=== PATIENT | female | born 1985 | race Caucasian/White ===

== ENCOUNTER 2022-09-20 20:08 | Outpatient (REF) | payer OTHER, SELFPAY ==
[2022-09-26 15:13] LABS: Age Gdln ACOG Testing Note (.); HPV Aptima Negative (Negative); IGP, Aptima HPV, rfx 16/18,45 Note (.)
== END 2022-09-20 20:09 | disposition home or self-care (01) ==
LOC: LAB 20:08
PROVIDERS: Visit Provider Physician Assistant
DX: Z12.4 Encounter for screening for malignant neoplasm of cervix (principal); Z11.51 Encounter for screening for human papillomavirus (HPV)
CPT/HCPCS: 87624; G0145

== ENCOUNTER 2023-06-27 15:28 | Outpatient (OUT) | payer OTHER, SELFPAY ==
--- NOTE | 2023-06-27 15:31 | MM_ITS ---
Patient Name: FREDDY QURESHI MR#: [id number] : 1985 Exam Date: 06/27/2023 Ordering Doctor: JOHN Cabral . RADIOLOGY REPORT PROCEDURE: MM TOMOSYNTHESIS SCREENING BI COMPARISON: None. INDICATIONS: screening Calculator Name NCI Breast Cancer Risk Assessment Tool 5 Year Breast Cancer Risk 0.80% Lifetime Breast Cancer Risk 13.60% Personal Breast Cancer No Personal Ovarian Cancer No Treatments radiation and chemo pill Family Cancers Aunt-maternal with breast cancer at age 62; Grandfather-paternal with colon cancer at age ~74. LOCATION: [facility] BREAST COMPOSITION: There are scattered areas of fibroglandular density. FINDINGS: DIAGNOSTIC CATEGORY 2--BENIGN FINDING. NO CHANGE FROM COMPARISON. Scattered benign-appearing calcifications are present. RIGHT BREAST: No significant suspicious finding. LEFT BREAST: No significant suspicious finding. RECOMMENDATIONS: ROUTINE MAMMOGRAM AND CLINICAL EVALUATION IN 12 MONTHS. PLEASE NOTE: A NORMAL MAMMOGRAM DOES NOT EXCLUDE THE POSSIBILITY OF BREAST CANCER. A CLINICALLY SUSPICIOUS PALPABLE LUMP SHOULD BE BIOPSIED. Dictated by: Jayce Bowling MD on 06/27/2023 at 16:11 Approved by: Jayce Bowling MD on 06/27/2023 at 16:13
== END 2023-06-27 15:29 | disposition home or self-care (01) ==
LOC: MAMMO 15:28
PROVIDERS: Visit Provider Physician Assistant
DX: Z12.31 Encounter for screening mammogram for malignant neoplasm of breast (principal); Z80.3 Family history of malignant neoplasm of breast; Z80.0 Family history of malignant neoplasm of digestive organs
CPT/HCPCS: 77063; 77067

== ENCOUNTER 2023-09-26 19:18 | Outpatient (REF) | payer OTHER, SELFPAY ==
--- OUTSIDE RECORDS SUMMARY | 2023-09-26 19:22 | XMS_ITS | CCD ---
Author Organization [facility] Care Team Providers Care Bow Maker Production Name Role Phone REBEKA, DR GALINA Neil Attending Unavailabl e REQUEST, DR WELLS LISTED Primary Care Unavaila ble REBEKA, DR GALINA Neil Consulting Unavailabl e REBEKA, DR GALINA Neil Admitting Unavailabl e REBEKA, DR GALINA Neil Attending Unavailabl e REQUEST, NONE LISTED Primary Care Unavaila ble GRROSI, DR GALINA Neil Consulting Unavailabl e GRROSI, DR GALINA Neil Admitting Unavailabl e JIM LANG Consulting Unavailable KUCHIPUDIDAMIAN Consulting Unavailable AG, DR PENNY Admitting Unavailable AG, DR PENNY Attending Unavailable REQUEST, NONE LISTED Primary Care Unavaila ble AG, DR PENNY Consulting Unavailable GRILLIS, DR GALINA Neli Attending Unavailabl e REQUEST, DR WELLS LISTED Primary Care Unavaila ble REBEKA, DR GALINA Neil Admitting Unavailabl e Silvina Day Unavailable Maggy Cassie Unavailable [facility] Primary [facility] Provider ANGELO SERNA Attending Unavailable MARVIN CHILDS Referring Unavailable SERNA, ANGELO Primary Care Unavailable FELIPE DRAKE Attending Unavailable FELIPE DRAKE Referring Unavailable SERNA, ANGELO Primary Care Unavailable FELIPE DRAKE Referring Unavailable SERNA, ANGELO Primary Care Unavailable FELIPE DRAKE Attending Unavailable FELIPE DRAKE Referring Unavailable SERNA, ANGELO Primary Care Unavailable FELIPE DRAKE Attending Unavailable MARVIN CHILDS Referring Unavailable SERNA, ANGELO Primary Care Unavailable BRANDY HERRERA Attending Unavailable ELIE JONES Attending Unavailable Medications Current Medications Medication Drug Class(es) Dates Sig (Normalized) Sig (Original) ALPRAZolam 0.25 mg oral tablet (1 source) Benzodiazepine Start: 12-15-2022 take 1 tablet by mouth once daily as needed for anxiety ALPRAZolam (XANAX) 0.25 mg tablet Indications: Anaplastic astrocytoma (CMS-HCC) Take 1 tablet (0.25 mg total) by mouth nightly as needed for anxiety. 20 tablet 0 12/15/2022 Active biotin 10 mg oral tablet (1 source) take 1 tablet by mouth once daily Biotin 10 MG 1 tablet Orally Once a day Active ibuprofen 200 mg oral tablet (1 source) Nonsteroidal Anti-inflammatory Drug ibuprofen (ADVIL,MOTRIN) 200 mg tablet Take 4 tablets (800 mg total) by mouth daily as needed. 2 tablets in the morning and 2 tablets at night 0 Active levETIRAcetam 500 mg oral tablet (3 sources) Start: 12-05-2022 take 1 tablet by mouth twice daily levETIRAcetam (KEPPRA) 500 mg tablet Indications: Brain lesion TAKE 1 TABLET BY MOUTH TWICE A DAY 60 tablet 5 12/05/2022 Active Keppra Active multivitamin capsule (1 source) take 2 capsules by mouth once daily multivitamin capsule Take by mouth daily. 2 gummies daily 0 Active Multivitamin preparation (1 source) take 1 tablet by mouth once daily Multivitamin - 1 tablet Orally Once a day Active nitrofurantoin, macrocrystals 25 mg / nitrofurantoin, monohydrate 75 mg oral capsule (1 source) Nitrofuran Antibacterial Start: 08-11-19 take 1 capsule by mouth every twelve hours Macrobid 100 MG 1 cap(s) Orally bid for 5 day(s) Aug, Active Completed/Discontinued Medications Medication Drug Class(es) Dates Sig (Normalized) Sig (Original) methylPREDNISolone 4 mg oral tablet (2 sources) Corticosteroid Start: 3 methylPREDNISolone 4 MG as directed Orally Once a day for 6 days Mar, Not-Taking mupirocin 0.02 mg/mg topical ointment (1 source) RNA Synthetase Inhibitor Antibacterial Start: 3 Mupirocin 2 % 1 application Externally Three times a day for 7 days May, Not-Taking Triamcinolone (2 sources) Corticosteroid Start: 8 KENALOG - 10 mg Aug, 40 mg Problems Active Problems Problem Classification Problem Date Documented Da te Episodic/Chronic Abdominal hernia (4 sources) Unilateral inguinal hernia, without obstruction or gangrene, not specified as recurrent; Translations: [UNI ING VONNIE NO OBST/GANG NOT RECUR] Onset: 01-19-2022 Episodic 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; 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, unspecified] Onset: 06-11-2020 04-07-2023 Chronic Genitourinary symptoms and ill-defined conditions (1 source) Dysuria Episodic Other nervous system disorders (1 source) Lesion of brain; Translations: [Disorder of brain, unspecified] Onset: 05-28-2020 05-28-2020 Chronic Otitis media and related conditions (1 source) Otitis media, unspecified, right ear Episodic Unclassified (1 source) CONTACT W/AND (SUSP) EXPOS COVID-19; Translations: [CONTACT W/AND (SUSP) EXPOS COVID-19] Onset: 01-18-2022 Past or Other Problems Problem Classification Problem Date Documented Date Episodic/Chronic Immunizations and screening for infectious disease (1 source) Encounter for screening for human papillomavirus (HPV); Translations: [ENC SCREENING HUMAN PAPILLOMAVIRUS] Onset: 08-11-2021 Episodic Mood disorders (1 source) Mood disorders Onset: 06-21-2022 06-21-2022 Other screening for suspected conditions (not mental disorders or infectious disease) (4 sources) Encounter for screening for malignant neoplasm of cervix; Translations: [ENC SCREENING MALIG NEOPLASM CERV] Onset: 08-04-2021 Episodic Results Test Name Value Interpretation Reference Range Facility MR BRAIN W WO CONTon 024 MR BRAIN W WO CONT MR BRAIN W WO CONT MR BRAIN W WO CONT 07/03/2023 12:57 PM INDICATION: Anaplastic astrocytoma (CMS-HCC) COMPARISON: MR brain 03/27/2023, 12/06/2022, 06/13/2022 TECHNIQUE: Multiplanar multisequence MR images of the brain were obtained with and without intravenous contrast. FINDINGS: BRAIN: Redemonstration of left posterior parietal region craniotomy and underlying resection cavity. There is similar appearance of underlying heterogeneous dural enhancement. Focal linear/nodular enhancement along the anterior medial resection cavity is similar similar compared to prior to most recent exam. Increased FLAIR signal about the resection cavity and associated ex vacuo dilatation of the left lateral ventricle is also similar compared to prior to most recent exam. No new nodular enhancement. Mild right peritrigonal and splenial increased FLAIR signal is similar compared to prior. There are areas of susceptibility signal within the resection cavity favored to represent blood products. VENTRICLES: Normal ventricular size. VASCULATURE: Patent major intracranial arterial vasculature. Patent major dural venous sinuses. ORBITS: Unremarkable. PARANASAL SINUSES: Visualized paranasal sinuses are well-aerated. TEMPORAL BONE: Well-aerated middle ears and visualized mastoid air cells. SOFT TISSUES: The visualized head and neck soft tissues are unremarkable. IMPRESSION: Similar left parietal resection cavity with similar degree of surrounding increased FLAIR signal and area of enhancement along the medial anterior margin, favored to represent posttreatment changes, given similarity of to two most recent prior exams. Perfusion imaging on follow-up MRI would be beneficial. Finalized by Jacob Keys DO on 07/03/2023 3:01 PM Normal [facility] MR BRAIN W WO CONTon 024 MR BRAIN W WO CONT MR BRAIN W WO CONT MR BRAIN W WO CONT 03/27/2023 12:37 PM INDICATION: Anaplastic astrocytoma (CMS-HCC); Malignant glioma of cerebrum (CMS-HCC) COMPARISON: MRI brain/, 12/06/2022, 06/13/2022, 01/10/2022 TECHNIQUE: Multiplanar multisequence MR images of the brain were obtained with and without intravenous contrast. FINDINGS: BRAIN: Redemonstration of resection cavity of the left posterior lateral parietal lobe with overlying craniotomy changes. There is persistent linear nodular areas of enhancement along the anterior medial margin, measuring approximately 8 mm, similar to most recent prior, and likely enlarged from more remote prior exams. There is continued surrounding abnormal increased FLAIR signal about the resection cavity, extending across the splenium of the corpus callosum, similar to most recent prior, and worsened for more remote prior exams. Interval resolution of diffusion signal within the region of the enhancement. Susceptibility signal about the resection cavity likely relating to blood products. VENTRICLES: Similar ex vacuo dilatation of the trigone of the left lateral ventricle. VASCULATURE: Patent major intracranial arterial vasculature. Patent major dural venous sinuses. ORBITS: Unremarkable. PARANASAL SINUSES: Visualized paranasal sinuses are well-aerated. TEMPORAL BONE: Well-aerated middle ears and visualized mastoid air cells. SOFT TISSUES: The visualized head and neck soft tissues are unremarkable. OSSEOUS STRUCTURES: Normal bone marrow signal. Visualized upper cervical spine is unremarkable. IMPRESSION: Redemonstration of left parietal resection cavity with continued nodular enhancement similar most recent prior exam, enlarged from remote prior exams, as well as abnormal surrounding FLAIR signal which is also similar to most recent prior exam, and enlarged from more remote prior exams. Progression versus posttreatment changes continue to be considerations. Continued follow-up with perfusion imaging recommended. IJacob DO have personally reviewed the image(s) and agree with and/or edited the report Finalized by Jacob Keys DO on 03/28/2023 10:35 AM Normal [facility] CBC AND AUTO DIFFon 03-27-19 ABSOLUTE BASOPHIL 0.0 X10E9/L Normal 0.0-0.2 [facility] Comment on above: Performed By: #### C BCA #### [facility] ([id number]) [address], [address] [place] [address] ABSOLUTE NEUTROPHIL 6.2 X10E9/L Normal 1.5-6.6 [facility] Comment on above: Performed By: #### C BCA #### [facility] ([id number]) [address], [address] [place] [address] Basophils/100 WBC (Bld) 0.5 % Normal [facility] Comment on above: Performed By: #### C BCA #### [facility] ([id number]) [address] [place] [address] Eosinophils (Bld) [#/Vol] 0.1 10*3/uL Normal 0.0-0.4 [facility] Comment on above: Performed By: #### C BCA #### [facility] ([id number]) [address] [place] [address] Eosinophils/100 WBC (Bld) 0.8 % Normal [facility] Comment on above: Performed By: #### C BCA #### [facility] ([id number]) [address], [address] [place] [address] Erythrocyte distribution width (RBC) [Ratio] 13.1 % Normal 11.5-15.0 [facility] Comment on above: Performed By: #### C BCA #### [facility] ([id number]) [address], [address] [place] [address] Hematocrit (Bld) [Volume fraction] 40.3 % Normal 35-47 [facility] Comment on above: Performed By: #### C BCA #### [facility] ([id number]) [address], [address] [place] [address] Hemoglobin (Bld) [Mass/Vol] 13.9 g/dL Normal 11.7-15.5 [facility] Comment on above: Performed By: #### C BCA #### [facility] ([id number]) [address], [address] [place] [address] Lymphocytes (Bld) [#/Vol] 1.3 10*3/uL Normal 1.0-3.5 [facility] Comment on above: Performed By: #### C BCA #### [facility] ([id number]) [address], [address] [place] [address] Lymphocytes/100 WBC (Bld) 16.7 % Normal [facility] Comment on above: Performed By: #### C BCA #### [facility] ([id number]) [address], [address] [place] [address] MCH (RBC) [Entitic mass] 31.5 pg Normal 27-34 [facility] Comment on above: Performed By: #### C BCA #### [facility] ([id number]) [address], [address] [place] [address] MCHC (RBC) [Mass/Vol] 34.4 g/dL Normal 32-36 [facility] Comment on above: Performed By: #### C BCA #### [facility] ([id number]) [address], [address] [place] [address] MCV (RBC) [Entitic vol] 92 fL Normal 80-100 [facility] Comment on above: Performed By: #### C BCA #### [facility] ([id number]) [address], [address] [place] [address] Monocytes (Bld) [#/Vol] 0.4 10*3/uL Normal 0-0.9 [facility] Comment on above: Performed By: #### C BCA #### [facility] ([id number]) [address], [address] [place] [address] Monocytes/100 WBC (Bld) 4.7 % Normal [facility] Comment on above: Performed By: #### C BCA #### [facility] ([id number]) [address], [address] [place] [address] Neutrophils/100 WBC (Bld) 77.3 % Normal [facility] Comment on above: Performed By: #### C BCA #### [facility] ([id number]) [address], [address] [place] [address] Platelet mean volume (Bld) [Entitic vol] 9.9 fL Normal 7-12 [facility] Comment on above: Performed By: #### C BCA #### [facility] ([id number]) [address], [address] [place] [address] Platelets (Bld) [#/Vol] 257 10*3/uL Normal 150-450 [facility] Comment on above: Performed By: #### C BCA #### [facility] ([id number]) [address], [address] [place] [address] RBC COUNT 4.41 X10E12/L Normal 3.80-5.20 [facility] Comment on above: Performed By: #### C BCA #### [facility] ([id number]) [address], [address] [place] [address] WBC (Bld) [#/Vol] 8.0 10*3/uL Normal 4.0-11.0 [facility] Comment on above: Performed By: #### C BCA #### [facility] ([id number]) [address], [address] [place] [address] Urinalysis - AUTOMATEDon Appearance (U) clear [place] Other Bilirubin Ql (U) Negative [email or web address] Other Color (U) yellow [employer] Other Glucose Ql (U) Negative [place] Other Hemoglobin Ql (U) Negative [employer] Other Ketones Ql (U) Negative [place] Other Leukocyte esterase Test strip Ql (U) Negative [employer] Other Nitrite Ql (U) Negative [employer] Other pH (U) 5.5 [pH] [employer] Other Protein Ql (U) Negative [employer] Other Specific gravity (U) [Rel density] 1.015 [employer] Other Urobilinogen (U) [Mass/Vol] 0.2 mg/dL [employer] Other Urinalysis - AUTOMATED [employer] Other PREG HCG QUALon 01-19-2022 , QUAL Negative Normal NEGATIVE [facility] Comment on above: Performed By: #### P REG #### [facility] [address] [place] [address] Dr. Alex Wang Covid-19 PCR (CVDTB)on 01-04 SARS-CoV-2 (COVID-19) RNA SYLVIE+probe Ql (Unsp spec) Not detected Normal NOT DETECTED [facility] Comment on above: Result Comment: This test is not yet approved or cleared by the [place] FDA. When there are no FDA-approved or cleared tests available, and other criteria are met, FDA can make tests available under an emergency access mechanism called an Emergency Use Authorization (EUA). The EUA for this test is supported by the [place] of Health and Human Service's (HHS's) declaration that circumstances exist to justify the emergency use of in vitro diagnostics for the detection and/or diagnosis of the virus that causes COVID-19. This EUA will remain in effect (meaning this test can be used) for the duration of the COVID-19 declaration justifying emergency of IVDs, unless it is terminated or revoked by FDA (after which the test may no longer be used). When diagnostic testing is negative, the possibility of a false negative should be considered in the context of a patient's recent exposures and the presence of clinical signs and symptoms consistent with SARS-CoV-2. Performed By: #### C VDTB #### [facility] [address] [place] [address] Dr. Alex Wang PAP ACOG PANEL 2: 30 to 65on 08-10-2021 . . Normal [facility] Comment on above: Result Comment: Perf ormed at: WB Performed By: #### [id number] #### [facility] [address] [place] [address] Dr. Alex Wang Age Gdln ACOG Testing - Normal [facility] Comment on above: Performed By: #### [id number] #### [facility] [address] [place] [address] Dr. Alex Wang DIAGNOSIS: Comment Normal [facility] Comment on above: Result Comment: NEGA TIVE FOR INTRAEPITHELIAL LESION OR MALIGNANCY. THIS SPECIMEN WAS RESCREENED PART OF OUR HEAD OF CYTOGENETICS PROGRAM. Performed at: WB Performed By: #### [id number] #### [facility] [address] [place] [address] Dr. Alex Wang HPV Aptima Negative Normal Negative [facility] Comment on above: Result Comment: This nucleic acid amplification test detects fourteen high-risk HPV types (16,18,31,33,35,39,45,51,52,56,58,59,66,68) without differentiation. Performed at: =G Performed By: #### 4 [id number] #### [facility] [address] [address] [address] Alex Wang Methodology: Comment Normal [facility] Comment on above: Result Comment: This liquid based ThinPrep(R) pap test was screened with the use of an image guided system. Performed at: WB Performed By: #### [id number] #### [facility] [address] [place] [address] Dr. Alex Wang Note: Comment Normal [facility] Comment on above: Result Comment: The Pap smear is a screening test designed to aid in the detection of premalignant and malignant conditions of the uterine cervix. It is not a diagnostic procedure and should not be used as the sole means of detecting cervical cancer. Both false-positive and false-negative reports do occur. . Performed at: WB Performed By: #### [id number] #### [facility] [address] [place] [address] Dr. Alex Wang Performed by: Comment Normal [facility] Comment on above: Result Comment: Tonja De Leon, Management Instructor (ASCP) Performed at: WB Performed By: #### [id number] #### [facility] [address] [place] [address] Dr. Alex Wang QC reviewed by: Comment Normal [facility] Comment on above: Result Comment: Loc Middleton, Management Instructor Performed at: WB Performed By: #### [id number] #### [facility] [address] [place] [address] Dr. Alex Wang Specimen adequacy: Comment Normal [facility] Comment on above: Result Comment: Sati sfactory for evaluation. Endocervical and/or squamous metaplastic cells (endocervical component) are present. Performed at: WB Performed By: #### 4 [id number] #### [facility] [address] [address] [address] Alex Wang PROGRESSon 05-25-2019 PROGRESS HNO ID: [id number] Author: Lucita Maldonado Service: ? Author Type: Nurse Practitioner Type: Progress Notes Filed: 05/25/2019 9:16 AM Note Text: Telemedicine Visit - Distance Health Virtual Visit Note Patient seen on [employer] [facility] platform. 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 No past medical history on file. No past surgical history on file. No family history on file. Social History Tobacco Use - Smoking status: Not on file Substance Use Topics - Alcohol use: Not on file - Drug use: Not on file No current outpatient medications on file. No current facility-administered medications for this visit. ALLERGIES Allergies not on file Video Exam (Examination performed via Video enabled technology) -video issues, visit completed via phone General appearance: Alert, oriented, pleasant, in NAD : Ill appearing : Lethargic appearing : Eyes: Sclera clear : Conjunctiva without erythema : Ears: Tragus / outer ear tenderness by self palpation :full Oropharynx: normal, no erythema and not examined Frontal sinus tenderness by self palpation;Yes Maxillary sinus tenderness by self palpation :Yes Tender cervical adenopathy by self palpation :Yes Respiratory distress :No Coughing noted :No Audible wheezing noted :No [facility] Criteria - Age (2-14=+1, 15-44=0, >=45 -1): 0 - Tonsillar exudates: 0 - Tender anterior cervical adenopathy: +1 - Fever by history (>38 or 100.4): 0 - Absence of cough: 0 0 points- probability of strep is 1-2.5% 1 point- probability of strep is 5-10% 2 points- probability of strep is 11-17% 3 points- probability of strep is 28-35% 4 points- probability of strep is 51-53% ASSESSMENT/PLAN: 1. Acute maxillary sinusitis, recurrence not specified - ICD9: 461.0, ICD10: J01.00 - Will begin treatment with as per antibiotic as written, see orders - The patient should also be given OTC cough and cold meds as needed and nasal saline gtts and suction prn for the first 5-7 days of treatment. - AMOXICILLIN 875 MG-POTASSIUM CLAVULANATE 125 MG TABLET - FLONASE SENSIMIST 27.5 MCG/ACTUATION NASAL SPRAY,SUSPENSION - SALINE MIST 0.65 % NASAL SPRAY AEROSOL -Tylenol (generic acetaminophen) 500 mg-2 tabs every 8 hrs. as needed for fever and aches -Sudafed (generic is fine), behind the counter, 2x30 mg tabs twice daily as needed for congestion -Mucinex (generic is fine) 1200 mg twice daily to help with cough and to thin out mucus -http://www.[email or web address] isely.org/patient-res ources/antibiotics/. This link shares information about when antibiotics may help and when they may not. - Red flags discussed for need for in person care - All questions answered Lucita Maldonado CNP If you let us know who your primary care provider is, we will send them a notification of today?s visit through our electronic medical records system. Since not all providers have access to our notifications, we strongly encourage you to share the following record of today?s visit with your primary care provider at your next visit. This will help in providing you the best care. Normal [facility] PROGRESS HNO ID: [id number] Author: Chela German) Marlys Service: ? Author Type: Nurse Practitioner Type: Progress Notes Filed: 05/25/2019 8:13 AM Note Text: Unable to connect. Pt.canceled visit. Chela Frankel APRN.IDANA [facility] PROGRESS HNO ID: [id number] Author: Nolvia Gifford) Gus Service: ? Author Type: Physician Work And Family Life Consultant Type: Progress Notes Filed: 05/25/2019 8:06 AM Note Text: Appointment cancelled, no connection. No phone number to contact pt. Nolvia Weber PA-C Normal [facility] Vital Signs Date Time Vital Sign Value Performing Clinician Facility 08-10-2022 16:50-0400 Body height 162.56 cm Cassie Winter Other [facility] Other 08-10-2022 16:50-0400 Body mass index (BMI) [Ratio] 26.6 kg/m2 Cassie Winter Other [facility] Other 08-10-2022 16:50-0400 Body temperature 97.7 [degF] Cassie Winter Other [facility] Other 08-10-2022 16:50-0400 Body weight 70.31 kg Cassie Winter Other [facility] Other 08-10-2022 16:50-0400 Respiratory rate 18 /min Cassie Winter Other [facility] Other 08-10-2022 16:50-0400 SaO2% (BldA) [Mass fraction] 99 % Cassie Winter Other [facility] Other 04-03-2022 15:20-0500 Body height 162.56 cm Silvina Shay Other [facility] Other 04-03-2022 15:20-0500 Body mass index (BMI) [Ratio] 27.46 kg/m2 Silvina Day Other [facility] Other 04-03-2022 15:20-0500 Body temperature 98 [degF] Silvina Day Other [facility] Other 04-03-2022 15:20-0500 Body weight 72.58 kg Silvina Day Other [facility] Other 04-03-2022 15:20-0500 Respiratory rate 18 /min Silvina Day Other [facility] Other 04-03-2022 15:20-0500 SaO2% (BldA) [Mass fraction] 97 % Silvina Day Other [facility] Other Encounters Encounter Date Encounter Type Care Provider Facility Start: 09-05-2023 End: 09-05-2023 ambulatory ELIE Alfredo ROBERT Not Available Start: 07-03-2023 End: 07-04-2023 ambulatory [facility] [place] Start: 06-22-2023 End: 06-22-2023 ambulatory [facility] Start: 04-25-2023 End: 04-25-2023 ambulatory BRANDY HERRERA Not Available Start: 04-07-2023 End: 04-07-2023 Orders Only Brooke guadarrama [place] [facility] Comment on above: Anaplastic astrocyto ma ([facility]-HCC) (Primary Dx) Start: 03-27-2023 End: 03-28-2023 ambulatory [facility] [place] [facility] Start: 08-10-2022 End: 08-10-2022 ambulatory Cassie Winter Other [facility] Other Start: 08-10-2022 Office outpatient vi sit 15 minutes Cassie Winter [facility] Start: 04-03-2022 End: 04-03-2022 ambulatory Silvina Shay Other [facility] Other Start: 04-03-2022 Office outpatient vi sit 15 minutes Silvina Day [facility] Start: 01-19-2022 End: 01-19-[address] GALINA STALEY Facility:[facility] Start: 01-18-2022 Encounter for preprocedural laboratory examination DR GALINA STALEY [facility] Start: 01-15-2022 End: 01-16-[address] GALINA STALEY Facility:[facility] Start: 01-15-2022 End: 01-16-2022 Encounter for preprocedural laboratory examination DR GALINA STALEY Facility:[facility] Start: 01-13-2022 Encounter for other preprocedural examination DR GALINA STALEY [facility] Start: 01-07-2022 End: 01-08-[address] GALINA STALEY Facility:[facility] Start: 01-07-2022 End: 01-08-2022 Encounter for other preprocedural examination DR GALINA STALEY Facility:[facility] Start: 08-04-2021 End: 08-04-[address] ZOHAIB LUONG Facility:[facility] Procedures Date Procedure Procedure Detail Performing Clinician Start: 04-07-2023 Follow-up visit Follow-up FELIPE DRAKE Start: 10-14-2022 Microscopic observat ion [Identifier] in Cervix by Cyto stain Brooke Duron RN Start: 06-21-2022 Adult depression scr eening assessment Brooke Duron RN Plan of Treatment Date Care Activity Detail Author Start: 10-14-2025 Screening for malignant neoplasm of cervix Pap Smear [facility] Start: 04-07-2024 Adult BMI Screening Adult BMI Screen ing [facility] Start: 11-03-2023 End: 11-03-2023 Patient encounter procedure 11/03/2023 3:30 PM EDT Office Visit [facility] - [facility] Oncology [address] [place] [id number] Felipe Drake MD [address] [facility] [facility] [address] [place], [place] [id number] [facility] - [facility] Start: 07-06-2023 End: 04-07-2024 MR Brain WO and W contrast IV MR brain with and without contrast Imaging Routine Anaplastic astrocytoma (CMS-HCC) Expected: 07/06/2023 (Approximate), Expires: 04/07/2024 [facility] Work Phone: Comment on above: Expected: 07/06/2023 (Approximate), Expires: 04/07/2024 Start: 06-22-2023 End: 06-22-2023 Patient encounter procedure 06/22/2023 3:15 PM EDT Office Visit [facility] [address] [place] [address] Angelo Seran, [employer] [address] [place], [place] [address] [facility] Start: 06-22-2023 Depression Screening Depression Scre [facility] Start: 06-22-2023 Tobacco Screening Tobacco Screening [facility] Start: 11-04-2022 COVID-19 Vaccine ( season) COVID-19 Vaccine ( season) [facility] Start: 06-22-2002 DTaP,Tdap and Td Vaccines (1 - Tdap) DTaP,Tdap and Td Vaccines (1 - Tdap) [facility] Immunizations Immunization Date Immunization Notes Care Provider Fa cility 11-24-2021 influenza, injectabl e, quadrivalent, preservative free Brooke Duron RN [facility] Work Phone: 11-25-2020 influenza, injectabl e, quadrivalent, preservative free Brooke Duron RN [facility] 11-27-2019 influenza, injectabl e, quadrivalent, preservative free Brooke Duron RN [facility] 11-28-2018 influenza, injectabl e, quadrivalent, preservative free Brooke Duron RN [facility] 11-29-2017 influenza, injectabl e, quadrivalent, preservative free Brooke Duron RN [facility] 11-30-2016 influenza, injectabl e, quadrivalent, preservative free Brooke Duron RN [facility] Payers Date Payer Category Payer Unknown [facility] [id number] 2020-Present [phone] [address] [address] [place] [address] [id number] 1985 Unknown [id number] 1985 Unknown [id number] 1983 Unknown [id number] [id number] 1983 Unknown [id number] [id number] 1983 Unknown [id number] [id number] 1983 Unknown [id number] [id number] 1983 Unknown [id number] [id number] 1983 Unknown [id number] [id number] 1983 Unknown [id number] [id number] 1983 Unknown [id number] [id number] 1983 Unknown [id number] 1959 Unknown [id number] Social History Date Type Detail Facility Unknown if ever smoked [facility] Other Start: 06-12-2021 End: 06-21-2022 [facility] Start: 12-27-2021 Tobacco smoking status CAIS Never smoked tobacco [facility] Start: 12-27-2021 Tobacco use and exposure Smokeless tobacco non-user [facility] Start: 06-21-2022 Alcohol intake Current drinker of alcohol (finding) [facility] Start: 06-12-2021 End: 06-21-2022 History of Social function [facility] Do you belong to any clubs or organizations such as alevism groups, unions, fraternal or athletic groups, or school groups? Yes [facility] Are you now , , , , never or living with a partner? [facility] How often to you hav e a drink containing alcohol? Monthly or less [facility] How many standard dr inks containing alcohol do you have on a typical day? 1 or 2 [facility] How often do you hav e 6 or more drinks on 1 occasion? Never [facility] How hard is it for y ou to pay for the very basics like food, housing, medical care, and heating Not hard at all [facility] Do you feel stress - tense, restless, nervous, or anxious, or unable to sleep at night because your mind is troubled all the time - these days [OSQ] Only a little [facility] Start: 07-12-2020 Education 18 [facility] Start: 03-14-2022 Alcohol Comment rarely [facility] Start: 1985 Sex Assigned At Not on file [facility]kt[facility] Medical Equipment Procedure Code Equipment Code Equipment Origin al Text Equipment Identifier Dates Gft Sft Tis Dram trx+ 2x2 [place] Rpl [id number] + [id number] - [id number] - [id number] Start: 06-01-2020 Cvr Lw Prof [place] 10mm - [id number] Start: 06-01-2020 Plt Lw Pf Extra Rig 2-Hl 12mm - [id number] Start: 06-01-2020 Scr Cmf Slfdrl C ross Pin 1.5x4 - [id number] Start: 06-01-2020 Goals Date Patient Goal Desired Activity /State Personal health goal Comment on above: Formatting of this n ote might be different from the original. Evaluation of progress towards goal: home/self care History of Present illness Narrative 04-07-2023 Brooke Duron RN - 04/07/2023 3:55 PM EST Note Date & Type Note Facility 04-07-2023 History of Presen t illness Narrative Patient is here for follow up with Dr. Drake. Orders received for Brain MRI in 3 months, no visit. Dr. Drake will review her imaging in tumor board. F/u in late 10/2023 again, likely need another imaging. Patient given calendar, verbalized understanding of future appointments. documented in this encounter [facility] Evaluation note 08-10-2022 Note Date & Type Note Facility 08-10-2022 Evaluation note Encounter Date Diagnosis Assessment Notes Aug, Dysuria (ICD-10 - R30.0) Dysuria: adult home care material was printed Drink plenty fluids, get plenty of rest. Take the Macrobid as prescribed until gone. Follow-up with your family physician if no improvement in 2 to 3 days. Take Tylenol or Motrin as needed for aches pains or fevers. The urine dip was negative however the patient will be treated for UTI due to her symptoms. Patient is in stable marital relationship with no concerns for STDs. Patient denies any perineal lesions or burning on urination [facility] Other Evaluation note 04-03-2022 Note Date & Type Note Facility 04-03-2022 Evaluation note Encounter Date Diagnosis Assessment Notes Mar, Right acute otitis media (ICD-10 - H66.91) take medication as directed. Middle ear fluid can be caused from allergies, traveling or viral infections. It may linger. Follow up with PCP if symptoms persist [facility] Other History general Narrative - Reported 01-04-2022 Note Date & Type Note Facility 01-04-2022 History general N arrative - Reported Type Medical History Brain tumor Surgical History C section Surgical History tonsillectomy Surgical History hernia repair 01/2022 Surgical History Brain tumor removal 01/2021 [facility] Other History general Narrative - Reported 01-04-2022 Note Date & Type Note Facility 01-04-2022 History general N arrative - Reported Type Medical History Brain tumor Medical History Seasonal allergic rhinitis Surgical History C section Surgical History tonsillectomy Surgical History hernia repair 01/2022 Surgical History Brain tumor removal 01/2021 Surgical History PE tubes [facility] Other Evaluation note Note Date & Type Note Facility Evaluation note Diagnosis Anaplastic astrocytoma ([facility]-H[facility])- Primary Malignant neoplasm of brain, unspecified site documented in this encounter [facility] Instructions Note Date & Type Note Facility Instructions Not on filedocumented in this en counter [facility] Summary Purpose Family History No Family History Records FoundNo Family History Records FoundNo Family History Records FoundNo Family History Records FoundNo Family History Records Found Advance Directives No Advanced Directives Records FoundLatest Code Status on File Code Status Date Activated Date Inactivated Comments Full Code 05/28/2020 10:51 PM 06/03/2020 4:31 PM Reason for Referral Specialty Diagnoses / Procedures Referred By Geoffrey ugarte Referred To Contact Radiology Diagnoses Anaplastic astrocytoma (CMS-HCC) Procedures MR brain with and without contrast Felipe Drake MD [address] [place], [place] [id number] Referral ID Status Reason Start Date Expiration Date V isits Requested Visits Authorized [id number] Pending Review 04/07/2023 04/06/2024 1 1 Additional Source Comments INFORMATION SOURCE (unrecogn ized section and content) DATE CREATED AUTHOR 05/25/2019 [facility] DATE CREATED AUTHOR AUTHOR'S ORGANIZ ATION 01/27/2022 [facility] DATE CREATED AUTHOR AUTHOR'S ORGANIZ ATION 06/24/2023 [facility] DATE CREATED AUTHOR AUTHOR'S ORGANIZ ATION 07/04/2023 [facility] DATE CREATED AUTHOR AUTHOR'S ORGANIZ ATION 09/06/2023 [facility] d[facility] Specialists EPIC REASON FOR VISIT (unrecogniz ed section and content) VERTIGO EAR BOTHERING HERPOS IBLE UTI Care Teams (unrecognized sec tion and content) [employer] Production Relationship Specialty Start Date End Date Angelo Serna APRN-[facility]: [phone] PCP - General Nurse Practitioner 09/03/22 FOR RECORDS PERTAINING TO PATIENTS WHO ARE OR HAVE BEEN ENROLLED IN A CHEMICAL DEPENDENCY/SUBSTANCEABUSE PROGRAM, SOME INFORMATION MAY BE OMITTED. This clinical summary was aggregated from multiple sources. Caution should be exercised in using it in the provision of clinical care. This summary normalizes information from multiple sources, and as a consequence, information in this document may materially change the coding, format and clinical context of patient data. In addition, data may be omitted in some cases. CLINICAL DECISIONS SHOULD BE BASED ON THE PRIMARY CLINICAL RECORDS. [facility] [employer] [facility]. provides no warranty or guarantee of the accuracy or completeness of information in this document.
[2023-10-02 12:09] LABS: Age Gdln ACOG Testing Note (.); HPV Aptima Negative (Negative); IGP, Aptima HPV, rfx 16/18,45 Note (.)
== END 2023-09-26 19:19 | disposition home or self-care (01) ==
LOC: LAB 19:18
PROVIDERS: Visit Provider Physician Assistant
DX: Z01.419 Encounter for gynecological examination (general) (routine) without abnormal findings (principal)
CPT/HCPCS: 87624; 88175

== ENCOUNTER 2024-06-27 15:08 | Outpatient (OUT) | payer OTHER, SELFPAY ==
--- NOTE | 2024-06-27 15:15 | MM_ITS ---
Patient Name: FREDDY QURESHI MR#: [id number] : 1985 Exam Date: 06/27/2024 Ordering Doctor: JOHN Cabral . RADIOLOGY REPORT PROCEDURE: MM TOMOSYNTHESIS SCREENING BI COMPARISON: MM TOMOSYNTHESIS SCREENING BI, 06/27/2023. INDICATIONS: Screening Calculator Name NCI Breast Cancer Risk Assessment Tool 5 Year Breast Cancer Risk 0.80% Lifetime Breast Cancer Risk 13.50% Personal Breast Cancer No Personal Ovarian Cancer No Treatments radiation and chemo pill Family Cancers Aunt-maternal with breast cancer at age 62; Grandfather-paternal with colon cancer at age ~74. LOCATION: [facility] BREAST COMPOSITION: There are scattered areas of fibroglandular density. FINDINGS: DIAGNOSTIC CATEGORY 1--NEGATIVE. RIGHT BREAST: No significant suspicious finding. LEFT BREAST: No significant suspicious finding. RECOMMENDATIONS: ROUTINE MAMMOGRAM AND CLINICAL EVALUATION IN 12 MONTHS. PLEASE NOTE: A NORMAL MAMMOGRAM DOES NOT EXCLUDE THE POSSIBILITY OF BREAST CANCER. A CLINICALLY SUSPICIOUS PALPABLE LUMP SHOULD BE BIOPSIED. Dictated by: Julio Cleveland DO on 06/27/2024 at 16:37 Approved by: Julio Cleveland DO on 06/27/2024 at 16:41
== END 2024-06-27 15:09 | disposition home or self-care (01) ==
LOC: MAMMO 15:10
PROVIDERS: PCP Nurse Practitioner Family; Visit Provider Physician Assistant
DX: Z12.31 Encounter for screening mammogram for malignant neoplasm of breast (principal); Z80.3 Family history of malignant neoplasm of breast; Z80.0 Family history of malignant neoplasm of digestive organs
CPT/HCPCS: 77063; 77067

== ENCOUNTER 2024-09-30 20:14 | Outpatient (REF) | payer OTHER, SELFPAY ==
--- OUTSIDE RECORDS SUMMARY | 2024-09-30 20:20 | XMS_ITS | CCD ---
Author Organization [facility] Care Team Providers Care [facility] Representatives Name Role Phone REBKEA, DR GALINA Neil Attending Unavailabl e REQUEST, DR WELLS LISTED Primary Care Unavaila ble REBEKA, DR GALINA Neil Consulting Unavailabl e REBEKA, DR GALINA Neil Admitting Unavailabl e REBEKA, DR GALINA Neil Attending Unavailabl e REQUEST, NONE LISTED Primary Care Unavaila ble GRROSI, DR GALINA Neil Consulting Unavailabl e GRROSI, DR GALINA Neil Admitting Unavailabl e JIM LANG Consulting Unavailable KUCHIPUDI, DAMIAN Consulting Unavailable AG, DR PENNY Admitting Unavailable AG, DR PENNY Attending Unavailable REQUEST, NONE LISTED Primary Care Unavaila ble AG, DR PENNY Consulting Unavailable GRILLIS, DR GALINA Neil Attending Unavailabl e REQUEST, NONE LISTED Primary Care Unavaila ble REBEKA, DR GALINA Neil Admitting Unavailabl e Silvina Day Unavailable Maggy Cassie [facility]available [facility] FELIPE DRAKE Attending Unavailable NOELLE, FELIPE N Referring Unavailable SERNA, ANGELO Primary Care Unavailable NOELLEFELIPE N Attending Unavailable NOELLE, WANG N Referring Unavailable SERNA, ANGELO Primary Care Unavailable NOELLE, FELIPE N Referring Unavailable SERNA, ANGELO Primary Care Unavailable FELIPE DRAKE N Attending Unavailable NOELLE, WANG N Referring Unavailable SERNA, ANGELO Primary Care Unavailable NOELLE, FELIPE N Attending Unavailable MARVIN CHILDS Referring Unavailable SERNA, ANGELO Primary Care Unavailable NOELLE, FELIPE N Attending Unavailable NOELLE, WANG N Referring Unavailable SERNA, ANGELO Primary Care Unavailable FELIPE DRAKE N Attending Unavailable MARVIN CHILDS Referring Unavailable SERNA, ANGELO Primary Care Unavailable Martina Montes Unavailable Clarence ENGLAND Angelo Primary Care Provider Angelo Beltran Primary Care Provider ANGELO SERNA Attending Unavailable SERNA, ANGELO Referring Unavailable SERNAANGELO Primary Care Unavailable ANGELO SERNA Attending Unavailable ANGELO SERNA Referring Unavailable SERNA ANGELO Primary Care Unavailable ANGELO SERNA Attending Unavailable SERNA, ANGELO Referring Unavailable SERNA, ANGELO Primary Care Unavailable TONJA ARMENDARIZ Attending Unavailable MARTINA HERRERA Attending Unavailable Medications Current Medications Medication Drug Class(es) Dates Sig (Normalized) Sig (Original) Albuterol Sulfate 90 mcg/actuation HFA aerosol inhaler (1 source) Start: 04-29-2024 Albuterol Sulfate 90 mcg/actuation HFA aerosol inhaler Active 2 INH INHALATION EVERY 4-6 HOURS as needed for shortness of breath or wheezing 6.7 April 29, 2024 12:00am biotin 10 mg oral tablet (1 source) take 1 tablet by mouth once daily Biotin 10 MG 1 tablet Orally Once a day Active doxycycline hyclate 100 mg oral tablet (1 source) Tetracycline-class Drug Start: 02-07-2024 End: 02-17-2024 take 1 tablet by mouth in the morning, then take 1 tablet by mouth at bedtime doxycycline (VIBRA-TABS) 100 mg tablet Take 1 tablet (100 mg total) by mouth in the morning and 1 tablet (100 mg total) before bedtime. Do all this for 10 days. 20 tablet 02/07/2024 02/17/2024 Active ibuprofen 200 mg oral tablet (11 sources) Nonsteroidal Anti-inflammatory Drug ibuprofen (ADVIL,MOTRIN) 200 mg tablet Take 4 tablets (800 mg total) by mouth daily as needed. 2 tablets in the morning and 2 tablets at night Active levETIRAcetam 500 mg oral tablet (20 sources) Start: 10-14-2022 End: 02-02-2024 take 1 tablet by mouth in the morning levETIRAcetam (Keppra) 500 MG tablet Take 1 tablet by mouth in the morning and 1 tablet before bedtime. 10/14/2022 Active Keppra Active levonorgestrel 0.171343 mg/hr intrauterine system (8 sources) Progestin, Progestin-containing Intrauterine Device Start: 10-05-2022 Levonorgestrel intrauterine device 52 mg Levonorgestrel ( KYLEENA IU) by Intrauterine route. Active Multiple Vitamins-Minerals (MULTIVITAMIN ADULT, MINERALS, PO) (4 sources) Multiple Vitamin s-Minerals (MULTIVITAMIN ADULT, MINERALS, PO) Take by mouth Daily. Active multivitamin capsule (11 sources) take 2 capsules by mouth once daily in the morning multivitamin capsule Take by mouth in the morning. 2 gummies daily . Active take 2 capsules by mouth once da adina multivitamin capsule Take by mouth daily. 2 gummies daily Active take 2 capsules by mouth once da adina multivitamin capsule Take by mouth daily. 2 gummies daily 0 Active Multivitamin preparation (1 source) take 1 tablet by mouth once daily Multivitamin - 1 tablet Orally Once a day Active Multivitamin tablet (1 source) Start: 04-29-19 25 take 1 tablet by mouth once daily Multivitamin tablet Active 1 TAB PO Daily April 29, 2024 12:00am nitrofurantoin, macrocrystals 25 mg / nitrofurantoin, monohydrate 75 mg oral capsule (1 source) Nitrofuran Antibacterial Start: 08-11-19 23 take 1 capsule by mouth every twelve hours Macrobid 100 MG 1 cap(s) Orally bid for 5 day(s) Aug, Active Completed/Discontinued Medications Medication Drug Class(es) Dates Sig (Normalized) Sig (Original) ALPRAZolam 0.25 mg oral tablet (3 sources) Benzodiazepine Start: 3 End: 4 take 1 tablet by mouth once daily as needed for anxiety ALPRAZolam (XANAX) 0.25 mg tablet Indications: Anaplastic astrocytoma (CMS-HCC) Take 1 tablet (0.25 mg total) by mouth nightly as needed for anxiety. 20 tablet 12/15/2022 06/22/2023 Discontinued (Therapy completed) methylPREDNISolone 4 mg oral tablet (2 sources) [...] NO OBST/GANG NOT RECUR] Onset: 01-19-2022 Episodic Anxiety disorders (2 sources) Generalized anxiety disorder; Translations: [Anxiety disorder due to a general medical condition] Onset: 03-25-2024 11-03-2023 Chronic Cancer of brain and nervous system (20 sources) Malignant glioma of cerebrum; Translations: [Malignant neoplasm of cerebrum, except lobes and ventricles] Onset: 06-11-2020 06-11-2020 Chronic Genitourinary symptoms and ill-defined conditions (1 source) Dysuria Episodic Malignant neoplasm without specification of site (1 source) Malignant (primary) neoplasm, unspecified; Translations: [Malignant (primary) neoplasm, unspecified] Onset: 03-25-2024 Chronic Other acquired deformities (4 sources) Contracture of joint of left ankle; Translations: [Contracture, left ankle] Onset: 09-16-2022 09-16-2022 Chronic Other nervous system disorders (13 sources) Lesion of brain; Translations: [Disorder of brain, unspecified] Onset: 05-28-2020 05-28-2020 Chronic Other nutritional; endocrine; and metabolic disorders (1 source) Body mass index 25-29 - overweight; Translations: [Overweight] 06-27-2024 Episodic Other screening for suspected conditions (not mental disorders or infectious disease) (6 sources) Encounter for screening for malignant neoplasm of cervix; Translations: [Patient encounter status] Onset: 08-04-2021 Episodic Other skin disorders (1 source) Folliculitis; Translations: [Follicular disorder, unspecified] 02-11-2024 Episodic Otitis media and related conditions (1 source) Otitis media, unspecified, right ear Episodic Unclassified (1 source) CONTACT W/AND (SUSP) EXPOS COVID-19; Translations: [CONTACT W/AND (SUSP) EXPOS COVID-19] Onset: 01-18-2022 Unclassified (1 source) Annual Exam Onset: 06-27-2024 Unclassified (1 source) Follow - Up Abscess Onset: 03-04-2024 Unclassified (1 source) Bump in Armpit Onset: 02-07-2024 Past or Other Problems Problem Classification Problem Date Documented Date Episodic/Chronic Immunizations and screening for infectious disease (1 source) Encounter for screening for human papillomavirus (HPV); Translations: [ENC SCREENING HUMAN PAPILLOMAVIRUS] Onset: 08-11-2021 Episodic Mood disorders (11 sources) Mood disorders Onset: 06-22-2023 Resolved: 06-27-2024 06-22-2023 Other non-epithelial cancer of skin (4 sources) History of malignant neoplasm of skin; Translations: [Personal history of other malignant neoplasm of skin] Onset: 09-16-2022 09-16-2022 Episodic Other skin disorders (2 sources) Localized swelling, mass and lump, left upper limb; Translations: [Localized superficial swelling, mass, or lump] Onset: 03-04-2024 03-04-2024 Episodic Results Test Name Value Interpretation Reference Range Facility MM TOMOSYNTHESIS SCREENING B Ion 06-27-2024 [place] [address] Mammography Report Signed Patient: FREDDY PEOPLES MR#: [id number] : 1985 Acct:[id number] Age/Sex: 39 / F ADM Date: 06/27/24 Loc: MAMMO Attending Dr: Tonja Armendariz Ordering Physician: Tonja Armendariz Results: Date of Service: 06/27/24 Follow Up: Procedure(s): MM tomosynthesis screening BI Accession Number(s): [id number] cc: Tonja Armendariz; Angelo Serna NP Patient Name: FREDDY PEOPLES MR#: [id number] : 1985 Exam Date: 06/27/2024 Ordering Doctor: JOHN Armendariz . RADIOLOGY REPORT PROCEDURE: MM TOMOSYNTHESIS SCREENING BI COMPARISON: MM TOMOSYNTHESIS SCREENING BI, 06/27/2023. INDICATIONS: Screening Calculator Name NCI Breast Cancer Risk Assessment Tool 5 Year Breast Cancer Risk 0.80% Lifetime Breast Cancer Risk 13.50% Personal Breast Cancer No Personal Ovarian Cancer No Treatments radiation and chemo pill Family Cancers Aunt-maternal with breast cancer at age 62; Grandfather-paternal with colon cancer at age 74. LOCATION: [facility] BREAST COMPOSITION: There are scattered areas of fibroglandular density. FINDINGS: DIAGNOSTIC CATEGORY 1--NEGATIVE. RIGHT BREAST: No significant suspicious finding. LEFT BREAST: No significant suspicious finding. RECOMMENDATIONS: ROUTINE MAMMOGRAM AND CLINICAL EVALUATION IN 12 MONTHS. PLEASE NOTE: A NORMAL MAMMOGRAM DOES NOT EXCLUDE THE POSSIBILITY OF BREAST CANCER. A CLINICALLY SUSPICIOUS PALPABLE LUMP SHOULD BE BIOPSIED. Dictated by: Julio Cleveland DO on 06/27/2024 at 16:37 Approved by: Julio Cleveland DO on 06/27/2024 at 16:41 Dictated By: Julio Cleveland M.D. Signed By: 06/27/241642 DD/ 41 TD/TT: Ed Educational Aide: [facility] Radiology, Radiologist, MD - 06/27/2024 [place] [address] Mammography Report Signed Patient: FREDDY PEOPLES MR#: [id number] : 1985 Acct:[id number] Age/Sex: 39 / F ADM Date: 06/27/24 Loc: MAMMO Attending Dr: Tnoja Armendariz Ordering Physician: Tonja Armendariz Results: Date of Service: 06/27/24 Follow Up: Procedure(s): MM tomosynthesis screening BI Accession Number(s): [id number] cc: Tonja Armendariz; Angelo Serna NP Patient Name: FREDDY PEOPLES MR#: [id number] : 1985 Exam Date: 06/27/2024 Ordering Doctor: JOHN Armendariz . RADIOLOGY REPORT PROCEDURE: MM TOMOSYNTHESIS SCREENING BI COMPARISON: MM TOMOSYNTHESIS SCREENING BI, 06/27/2023. INDICATIONS: Screening Calculator Name NCI Breast Cancer Risk Assessment Tool 5 Year Breast Cancer Risk 0.80% Lifetime Breast Cancer Risk 13.50% Personal Breast Cancer No Personal Ovarian Cancer No Treatments radiation and chemo pill Family Cancers Aunt-maternal with breast cancer at age 62; Grandfather-paternal with colon cancer at age 74. LOCATION: [facility] BREAST COMPOSITION: There are scattered areas of fibroglandular density. FINDINGS: DIAGNOSTIC CATEGORY 1--NEGATIVE. RIGHT BREAST: No significant suspicious finding. LEFT BREAST: No significant suspicious finding. RECOMMENDATIONS: ROUTINE MAMMOGRAM AND CLINICAL EVALUATION IN 12 MONTHS. PLEASE NOTE: A NORMAL MAMMOGRAM DOES NOT EXCLUDE THE POSSIBILITY OF BREAST CANCER. A CLINICALLY SUSPICIOUS PALPABLE LUMP SHOULD BE BIOPSIED. Dictated by: Julio Cleveland DO on 06/27/2024 at 16:37 Approved by: Julio Cleveland DO on 06/27/2024 at 16:41 Dictated By: Julio Cleveland M.D. Signed By: 06/27/241642 DD/ 41 TD/TT: Ed Educational Aide: [facility] [employer] Radiology Study observation (narrative) [facility] [employer] MM TOMOSYNTHESIS SCREENING B IOrdered By: Radiologist Radiology on 06-27-2024 [facility] Work Phone: MR BRAIN W WO CONTon 025 MR BRAIN W WO CONT MR BRAIN W WO CONT EXAM: MR BRAIN W WO CONT TECHNIQUE: Routine multiplanar multisequence MR imaging of the brain was performed prior to and following the uneventful administration of intravenous contrast. CLINICAL HISTORY: Metastatic disease evaluation. History of anaplastic astrocytoma. COMPARISON: 10/23/2023, 07/03/2023, and earlier FINDINGS: Stable postsurgical changes status post left parietal craniotomy with an underlying focal surgical resection cavity. The overall degree of postsurgical distortion is without significant interval change. Stable appearance of chronic linear enhancement within the surgical resection site, suspected postsurgical in etiology. No new or progressive foci of pathologic enhancement are identified within the surgical resection cavity or elsewhere throughout the brain. Chronic FLAIR and T2 hyperintensity surrounding the surgical resection cavity is stable, and most compatible with chronic postoperative gliosis and possibly a post therapeutic etiology. Chronic fluid within the surgical resection cavity is stable. There is no intracranial mass effect. There is no shift of the midline structures and the basal cisterns are widely patent. There is no evidence for ventricular outflow obstruction. There is no restricted diffusion. The midline structures and craniocervical junction are within normal limits. There is no restricted diffusion. The paranasal sinuses are well aerated. The mastoids are clear. IMPRESSION: 1. Stable postsurgical changes status post left parietal craniotomy with underlying surgical resection cavity, as detailed above. There is no convincing evidence for disease progression. Finalized by Mark Thomas MD on 03/25/2024 3:15 PM Normal [facility] MR BRAIN W WO CONTon 024 MR BRAIN W WO CONT MR BRAIN W WO CONT MR BRAIN W WO CONT 10/23/2023 12:41 PM INDICATION: Anaplastic astrocytoma (CMS-HCC). Staging/restaging. Assess treatment response. COMPARISON: MR brain 07/03/2023, MR brain 03/27/2023 TECHNIQUE: Multiplanar multisequence MR images of the brain were obtained with and without intravenous contrast. FINDINGS: Redemonstrated left parietal craniotomy with underlying resection cavity. Similar appearance of the surgical bed with small foci of susceptibility compatible with hemosiderin deposition and surrounding T2/FLAIR hyperintense signal. No new or enlarging enhancing nodularity. Ill-defined enhancement along the deep margins of the resection cavity adjacent to the lateral ventricle have decreased in conspicuity compared to prior examination and measures approximately 5 mm in diameter (series 17 image 116). Dural thickening/enhancemen t along the craniotomy site is similar to prior examination. No new intracranial enhancing lesions. No acute intracranial ischemia, new mass effect, shift of midline structures, or new extra-axial fluid collection. Similar signal changes of the corpus callosum splenium. Ventricular system size and morphology are unchanged with ex vacuo dilatation of the left lateral ventricle trigone. Basal cisterns are patent. Orbits are symmetric. Paranasal sinuses are well-aerated. Mastoid air cells are clear. IMPRESSION: Stable appearance of the left parietal resection cavity with no evidence to suggest residual or recurrent disease. Decreased conspicuity of the nodular enhancement along the deep resection margin, likely posttreatment changes. IHeriberto MD have personally reviewed the image(s) and agree with and/or edited the report Finalized by Heriberto Nesbitt MD on 10/25/2023 10:19 AM Normal [facility] MR BRAIN W WO CONTon 024 MR [...] Jacob Keys DO on 07/03/2023 3:01 PM [facility] MR BRAIN W WO CONTon 024 [...] Keys DO on 03/28/2023 10:35 AM Normal [facility] CBC AND AUTO DIFFon 03-27-19 ABSOLUTE BASOPHIL 0.0 X10E9/L Normal 0.0-0.2 [facility] Comment on above: Performed By: #### C BCA #### [facility] ([id number]) [address], [address] [place] [address] ABSOLUTE NEUTROPHIL 6.2 X10E9/L Normal 1.5-6.6 [facility] Comment on above: Performed By: #### C BCA #### [facility] ([id number]) [address], [address] [place] [address] Basophils/100 WBC (Bld) 0.5 % Normal [facility] Comment on above: Performed By: #### C BCA #### [facility] ([id number]) [address], [address] [place] [address] Eosinophils (Bld) [#/Vol] 0.1 10*3/uL Normal 0.0-0.4 [facility] Comment on above: Performed By: #### C BCA #### [facility] ([id number]) [address], [address] [place] [address] Eosinophils/100 WBC (Bld) 0.8 % Normal [facility] Comment on above: Performed By: #### C BCA #### [facility] ([id number]) [address], [address] [place] [address] Erythrocyte distribution width (RBC) [Ratio] 13.1 % Normal 11.5-15.0 [facility] Comment on above: Performed By: #### C BCA #### [facility] ([id number]) [address], [address] [place] [address] Hematocrit (Bld) [Volume fraction] 40.3 % Normal 35-47 [facility] Comment on above: Performed By: #### C BCA #### [facility] ([id number]) [address], [address] [place] [address] Hemoglobin (Bld) [Mass/Vol] 13.9 g/dL Normal 11.7-15.5 [facility] Comment on above: Performed By: #### C BCA #### [facility] ([id number]) [address], [address] [place] [address] Lymphocytes (Bld) [#/Vol] 1.3 10*3/uL Normal 1.0-3.5 [facility] Comment on above: Performed By: #### C BCA #### [facility] ([id number]) [address], [address] [place] [address] Lymphocytes/100 WBC (Bld) 16.7 % Normal [facility] Comment on above: Performed By: #### C BCA #### [facility] ([id number]) [address], [address] [place] [address] MCH (RBC) [Entitic mass] 31.5 pg Normal 27-34 [facility] Comment on above: Performed By: #### C BCA #### [facility] ([id number]) [address], [address] [place] [address] MCHC (RBC) [Mass/Vol] 34.4 g/dL Normal 32-36 [facility] Comment on above: Performed By: #### C BCA #### [facility] ([id number]) [address], [address] [place] [address] MCV (RBC) [Entitic vol] 92 fL Normal 80-100 [facility] Comment on above: Performed By: #### C BCA #### [facility] ([id number]) [address] [place] [address] Monocytes (Bld) [#/Vol] 0.4 10*3/uL Normal 0-0.9 [facility] Comment on above: Performed By: #### C BCA #### [facility] ([id number]) [address], [address] [place] [address] Monocytes/100 WBC (Bld) 4.7 % Normal [facility] Comment on above: Performed By: #### C BCA #### [facility] ([id number]) [address], [address] [place] [address] Neutrophils/100 WBC (Bld) 77.3 % Normal [facility] Comment on above: Performed By: #### C BCA #### [facility] ([id number]) [address], [address] [place] [address] Platelet mean volume (Bld) [Entitic vol] 9.9 fL Normal 7-12 [facility] Comment on above: Performed By: #### C BCA #### [facility] ([id number]) [address], [address] [place] [address] Platelets (Bld) [#/Vol] 257 10*3/uL Normal 150-450 [facility] Comment on above: Performed By: #### C BCA #### [facility] ([id number]) [address] [place] [address] RBC COUNT 4.41 X10E12/L Normal 3.80-5.20 [facility] Comment on above: Performed By: #### C BCA #### [facility] ([id number]) [address], [address] [place] [address] WBC (Bld) [#/Vol] 8.0 10*3/uL Normal 4.0-11.0 [facility] Comment on above: Performed By: #### C BCA #### [facility] ([id number]) [address], [address] [place] [address] Urinalysis - AUTOMATEDon Appearance (U) clear [employer] Other Bilirubin Ql (U) Negative [employer] Other Color (U) yellow [employer] Other Glucose Ql (U) Negative [employer] Other Hemoglobin Ql (U) Negative [employer] Other Ketones Ql (U) Negative [employer] Other Leukocyte esterase Test strip Ql (U) Negative [employer] Other Nitrite Ql (U) Negative [employer] Other pH (U) 5.5 [pH] [employer] Other Protein Ql (U) Negative [employer] Other Specific gravity (U) [Rel density] 1.015 [employer] Other Urobilinogen (U) [Mass/Vol] 0.2 mg/dL [employer] Other Urinalysis - AUTOMATED [employer] Other PREG HCG QUALon 01-19-2022 , QUAL Negative Normal NEGATIVE [facility] Comment on above: Performed By: #### P REG #### [facility] [address], [place] [address] Dr. Alex Wang Covid-19 PCR ([facility])on 01-04 SARS-CoV-2 (COVID-19) RNA SYLVIE+probe Ql (Unsp spec) Not detected Normal NOT DETECTED [facility] Comment on above: Result Comment: This test is not yet approved or cleared by the [place] FDA. When there are no FDA-approved or cleared tests available, and other criteria are met, FDA can make tests available under an emergency access mechanism called an Emergency Use Authorization (EUA). The EUA for this test is supported by the Title Agent of Health and Human Service's (HHS's) declaration [...] consistent with SARS-CoV-2. Performed By: #### C VDTBH #### [facility] [address], [place] [address] Dr. Alex Wang PAP ACOG PANEL 2: 30 to 65on 08-10-2021 . . Normal [facility] [place] Comment on above: Result Comment: Perf ormed at: WB Performed By: #### [id number] #### [facility] [address], [place] [address] Dr. Alex Wang Age Gdln ACOG Testing 30-65 Normal [facility] [place] Comment on above: Performed By: #### [id number] #### [facility] [address] [place] [address] [address] Alex Wang DIAGNOSIS: Comment Normal [facility] [place] Comment on above: Result Comment: NEGA TIVE FOR INTRAEPITHELIAL LESION OR MALIGNANCY. THIS SPECIMEN WAS RESCREENED PART OF OUR AURICULAR ACUPUNCTURIST PROGRAM. Performed at: WB Performed By: #### [id number] #### [facility] [address] [place] [address] [address] Alex Wang HPV Aptima Negative Normal Negative [facility] [place] Comment on above: Result Comment: This nucleic acid amplification test detects fourteen high-risk HPV types (16,18,31,33,35,39,45,51,52,56,58,59,66,68) without differentiation. Performed at: =G Performed By: #### [id number] #### [facility] [address] [place] [address] Dr. Alex Wang Methodology: Comment Normal [facility] Comment on above: Result Comment: This liquid based ThinPrep(R) pap test was screened with the use of an image guided system. Performed at: WB Performed By: #### [id number] #### [facility] [address] [place] [address] Dr. Alex Wang Note: Comment Normal [facility] Comment on above: Result Comment: The Pap smear is a screening test designed to aid in the detection of premalignant and malignant conditions of the uterine cervix. It is not a diagnostic procedure and should not be used as the sole means of detecting cervical cancer. Both false-positive and false-negative reports do occur. . Performed at: WB Performed By: #### [id number] #### [facility] [address] [address] [address] Alex Wang Performed by: Comment Normal [facility] Comment on above: Result Comment: Tonja De Leon, Risk Management Manager (ASCP) Performed at: WB Performed By: #### [id number] #### [facility] [address] [place] [address] Dr. Alex Wang QC reviewed by: Comment Normal [facility] Comment on above: Result Comment: Loc Middleton, Risk Management Manager Performed at: WB Performed By: [id number] #### [facility] [address], [place] [address] Dr. Alex Wang Specimen adequacy: Comment Normal [facility] Comment on above: Result Comment: Sati sfactory for evaluation. Endocervical and/or squamous metaplastic cells (endocervical component) are present. Performed at: WB Performed By: #### [id number] #### [facility] [address], [place] [address] Dr. Alex Wang PROGRESSon 05-25-2019 PROGRESS HNO ID: [id number] Author: Lucita Maldonado Service: ? Author Type: Nurse Practitioner Type: Progress Notes Filed: 05/25/2019 9:16 AM Note Text: Telemedicine Visit - Distance Health Virtual Visit Note Patient seen on [employer] platform. Location of patient: [place] History of Present Illness Freddy Peoples is [...] in providing you the best care. Normal [facility] PROGRESS HNO ID: [id number] Author: Chela German) Marlys Service: ? Author Type: Nurse Practitioner Type: Progress Notes Filed: 05/25/2019 8:13 AM Note Text: Unable to connect. Pt.canceled visit. Chela Frankel APRN.CNP [facility] PROGRESS HNO ID: [id number] Author: Nolvia Gifford) Gus Service: ? Author Type: Physician [place] Actor Type: Progress Notes Filed: 05/25/2019 8:06 AM Note Text: Appointment cancelled, no connection. No phone number to contact pt. Nolvia Weber PA-C [facility] Vital Signs Date Time Vital Sign Value Performing Clinician Facility 09-30-2024 10:10-0400 Body mass index (BMI) [Ratio] 26.26 kg/m2 Tonja LOPEZ Work Phone: [facility] 09-30-2024 10:10-0400 Body weight 69.4 kg Tonja LOPEZ Work Phone: [facility] 09-30-2024 10:10-0400 Diastolic blood pressure 76 mm[Hg] Tonja LOPEZ Work Phone: [facility] 09-30-2024 10:10-0400 Systolic blood pressure 114 mm[Hg] Tonja LOPEZ Work Phone: [facility] 06-27-2024 13:14-0400 Body height 162.6 cm Angelo Serna APRN-MESH CUTTER Work Phone: [facility] 06-27-2024 13:14-0400 Body mass index (BMI) [Ratio] 26.67 kg/m2 Angelo Serna ASSISTANT PARALEGAL-MESH CUTTER Work Phone: [facility] 06-27-2024 13:14-0400 Body temperature 97.9 [degF] Angelo Serna APRN-MESH CUTTER Work Phone: [facility] 06-27-2024 13:14-0400 Body weight 70.49 kg Angelo Serna ASSISTANT PARALEGAL-MESH CUTTER Work Phone: [facility] 06-27-2024 13:14-0400 Diastolic blood pressure 62 mm[Hg] Angelo Serna ASSISTANT PARALEGAL-MESH CUTTER Work Phone: [facility] 06-27-2024 13:14-0400 Heart rate 75 /min Angelo Serna ASSISTANT PARALEGAL-MESH CUTTER Work Phone: [facility] 06-27-2024 13:14-0400 SaO2% (BldA) [Mass fraction] 97 % Angelo Serna ASSISTANT PARALEGAL-MESH CUTTER Work Phone: [facility] 06-27-2024 13:14-0400 Systolic blood pressure 118 mm[Hg] Angelo Seran ASSISTANT PARALEGAL-MESH CUTTER Work Phone: [facility] 04-29-2024 13:17-0500 Body height 162.56 cm [facility] 04-29-2024 13:17-0500 Body mass index (BMI) [Ratio] 25.5 kg/m2 [facility] 04-29-2024 13:17-0500 Body temperature 98.1 [degF] [facility] 04-29-2024 13:17-0500 Body weight 67.58 kg [facility] 04-29-2024 13:17-0500 Diastolic blood pressure 67 mm[Hg] [facility] 04-29-2024 13:17-0500 Heart rate 93 /min [facility] 04-29-2024 13:17-0500 SaO2% (BldA) [Mass fraction] 97 % [facility] 04-29-2024 13:17-0500 Systolic blood pressure 103 mm[Hg] [facility] 03-04-2024 07:44-0500 Body height 162.6 cm Angelo Serna ASSISTANT PARALEGAL-MESH CUTTER Work Phone: [facility] 03-04-2024 07:44-0500 Body mass index (BMI) [Ratio] 25.82 kg/m2 Angelo Serna ASSISTANT PARALEGAL-MESH CUTTER Work Phone: [facility] 03-04-2024 07:44-0500 Body temperature 98.2 [degF] Angelo Serna ASSISTANT PARALEGAL-MESH CUTTER Work Phone: [facility] 03-04-2024 07:44-0500 Body weight 68.22 kg Angelo Serna ASSISTANT PARALEGAL-MESH CUTTER Work Phone: [facility] 03-04-2024 07:44-0500 Diastolic blood pressure 68 mm[Hg] Angelo Serna ASSISTANT PARALEGAL-MESH CUTTER Work Phone: [facility] 03-04-2024 07:44-0500 Heart rate 76 /min Angelo Serna ASSISTANT PARALEGAL-MESH CUTTER Work Phone: [facility] 03-04-2024 07:44-0500 SaO2% (BldA) [Mass fraction] 96 % Angelo Serna ASSISTANT PARALEGAL-MESH CUTTER Work Phone: [facility] 03-04-2024 07:44-0500 Systolic blood pressure 120 mm[Hg] Angelo Serna ASSISTANT PARALEGAL-MESH CUTTER Work Phone: [facility] 02-07-2024 11:39-0500 Body mass index (BMI) [Ratio] 25.31 kg/m2 Angelo Serna ASSISTANT PARALEGAL-MESH CUTTER Work Phone: [facility] 02-07-2024 11:39-0500 Body temperature 97.81 [degF] Angelo Serna ASSISTANT PARALEGAL-MESH CUTTER Work Phone: [facility] 02-07-2024 11:39-0500 Body weight 68.49 kg Angelo Serna ASSISTANT PARALEGAL-MESH CUTTER Work Phone: [facility] 02-07-2024 11:39-0500 Diastolic blood pressure 64 mm[Hg] Angelo Serna ASSISTANT PARALEGAL-MESH CUTTER Work Phone: [facility] 02-07-2024 11:39-0500 Heart rate 76 /min Angelo Serna ASSISTANT PARALEGAL-MESH CUTTER Work Phone: [facility] [employer] [facility] 02-07-2024 11:39-0500 SaO2% (BldA) [Mass fraction] 98 % Angelo Serna ASSISTANT PARALEGAL-MESH CUTTER Work Phone: [facility] [employer] [facility] 02-07-2024 11:39-0500 Systolic blood pressure 110 mm[Hg] Angelo Serna ASSISTANT PARALEGAL-MESH CUTTER Work Phone: [facility] [employer] [facility] 11-03-2023 15:14-0400 Body height 164.5 cm Felipe Drake MD Work Phone: [facility] [employer] [facility] 11-03-2023 15:14-0400 Body mass index (BMI) [Ratio] 25.21 kg/m2 Felipe Drake MD Work Phone: [facility] [employer] [facility] 11-03-2023 15:14-0400 Body weight 68.22 kg Felipe Drake MD Work Phone: [facility] [employer] [facility] 11-03-2023 15:14-0400 Diastolic blood pressure 61 mm[Hg] Felipe Drake MD Work Phone: [facility] [employer] [facility] 11-03-2023 15:14-0400 Heart rate 72 /min Felipe Drake MD Work Phone: [facility] [employer] [facility] 11-03-2023 15:14-0400 Respiratory rate 18 /min Felipe Drake MD Work Phone: [facility] [employer] [facility] 11-03-2023 15:14-0400 SaO2% (BldA) [Mass fraction] 99 % Felipe Drake MD Work Phone: [facility] [employer] [facility] 11-03-2023 15:14-0400 Systolic blood pressure 128 mm[Hg] Feliep Drake MD Work Phone: [facility] [employer] [facility] 06-22-2023 15:15-0400 Body mass index (BMI) [Ratio] 24.54 kg/m2 Angelo Serna ASSISTANT PARALEGAL-MESH CUTTER Work Phone: [facility] [employer] [facility] 06-22-2023 15:15-0400 Body temperature 97.81 [degF] Angelo Serna ASSISTANT PARALEGAL-MESH CUTTER Work Phone: [facility] [employer] [facility] 06-22-2023 15:15-0400 Body weight 66.41 kg Angelo Serna ASSISTANT PARALEGAL-MESH CUTTER Work Phone: [facility] [employer] [facility] 06-22-2023 15:15-0400 Diastolic blood pressure 60 mm[Hg] Angelo Serna ASSISTANT PARALEGAL-MESH CUTTER Work Phone: [facility] [employer] [facility] 06-22-2023 15:15-0400 Heart rate 77 /min Angelo Serna ASSISTANT PARALEGAL-MESH CUTTER Work Phone: [facility] [employer] [facility] 06-22-2023 15:15-0400 SaO2% (BldA) [Mass fraction] 98 % Angelo Serna ASSISTANT PARALEGAL-MESH CUTTER Work Phone: [facility] [employer] [facility] 06-22-2023 15:15-0400 Systolic blood pressure 144 mm[Hg] Angelo Serna ASSISTANT PARALEGAL-MESH CUTTER Work Phone: [facility] [employer] [facility] 04-07-2023 15:04-0500 Body height 164.5 cm Felipe Drake MD Work Phone: [facility] [employer] [facility] 04-07-2023 15:04-0500 Body mass index (BMI) [Ratio] 24.98 kg/m2 Felipe Drake MD Work Phone: [facility] [employer] [facility] 04-07-2023 15:04-0500 Body temperature 99 [degF] Felipe Drake MD Work Phone: [facility] [employer] [facility] 04-07-2023 15:04-0500 Body weight 67.59 kg Felipe Drake MD Work Phone: [facility] [employer] [facility] 04-07-2023 15:04-0500 Diastolic blood pressure 61 mm[Hg] Felipe Drake MD Work Phone: [facility] [employer] [facility] 04-07-2023 15:04-0500 Heart rate 77 /min Felipe Drake MD Work Phone: [facility] 04-07-2023 15:04-0500 Respiratory rate 18 /min Felipe Drake MD Work Phone: [facility] 04-07-2023 15:04-0500 SaO2% (BldA) [Mass fraction] 100 % Felipe Drake MD Work Phone: [facility] 04-07-2023 15:04-0500 Systolic blood pressure 124 mm[Hg] Felipe Drake MD Work Phone: [facility] 08-10-2022 16:50-0400 Body height 162.56 cm Cassie Arayamond Other [employer] Other 08-10-2022 16:50-0400 Body mass index (BMI) [Ratio] 26.6 kg/m2 Cassie Maggy Other [employer] Other 08-10-2022 16:50-0400 Body temperature 97.7 [degF] Cassie Maggy Other [employer] Other 08-10-2022 16:50-0400 Body weight 70.31 kg Cassie Maggy Other [employer] Other 08-10-2022 16:50-0400 Respiratory rate 18 /min Cassie Maggy Other [employer] Other 08-10-2022 16:50-0400 SaO2% (BldA) [Mass fraction] 99 % Cassie Maggy Other [employer] Other 04-03-2022 15:20-0500 Body height 162.56 cm Sivlina Day Other [employer] Other 04-03-2022 15:20-0500 Body mass index (BMI) [Ratio] 27.46 kg/m2 Silvina Day Other [employer] Other 04-03-2022 15:20-0500 Body temperature 98 [degF] Silvina Day Other [employer] Other 04-03-2022 15:20-0500 Body weight 72.58 kg Silvina Day Other [employer] Other 04-03-2022 15:20-0500 Respiratory rate 18 /min Silvina Day Other [employer] Other 04-03-2022 15:20-0500 SaO2% (BldA) [Mass fraction] 97 % Silvina Day Other [employer] Other Encounters Encounter Date Encounter Type Care Provider Facility Start: 09-30-2024 End: 09-30-2024 Bamboo flowsheet Tonja LOPEZ Work Phone: [facility] Start: 09-30-2024 End: 09-30-2024 Bamboo flowsheet Tonja LOPEZ Work Phone: [facility] Start: 09-30-2024 End: 09-30-2024 Patient encounter procedure Tonja LOPEZ Work Phone: [facility] Work Phone: Start: 09-30-2024 End: 09-30-2024 Periodic preventive med est patient 40-64yrs Tonja LOPEZ Work Phone: [facility] Comment on above: Well woman exam with routine gynecological exam; Breast cancer screening by mammogram Start: 09-30-2024 End: 09-30-2024 ambulatory TONJA ARMENDARIZ Not Available Start: 06-27-2024 End: 06-27-2024 Clinisync Result Encounter Tonja LOPEZ Work Phone: [facility] Unsolicited Start: 06-27-2024 End: 06-27-2024 Clinisync Result Encounter Tonja LOPEZ Work Phone: [facility] Unsolicited Start: 06-27-2024 End: 06-27-2024 Patient encounter status Angelo Serna ASSISTANT PARALEGAL-MESH CUTTER Work Phone: [facility] Start: 06-27-2024 End: 06-27-2024 Periodic preventive med est patient 40-64yrs Angelo Serna ASSISTANT PARALEGAL-MESH CUTTER [facility] Comment on above: Wellness examination (Primary Dx); Overweight (BMI 25.0-29.9) Start: 06-27-2024 End: 06-27-[address] [facility] Start: 04-29-2024 End: 04-29-2024 ambulatory [facility] Work Phone: Start: 04-29-2024 End: 04-29-2024 Patient encounter procedure [facility] Work Phone: Start: 03-25-2024 End: 03-25-2024 ambulatory [facility] Start: 03-04-2024 End: 03-04-2024 Office outpatient visit 10 minutes Angelo Serna ASSISTANT PARALEGAL-MESH CUTTER Work Phone: [facility] Comment on above: Lump in armpit, left (Primary Dx) Start: 03-04-2024 End: 03-04-[address] [facility] Start: 02-07-2024 End: 02-07-2024 Office outpatient visit 15 minutes Angelo Rojas ASSISTANT PARALEGAL-MESH CUTTER Work Phone: [facility] Comment on above: Folliculitis (Primar y Dx) Start: 02-07-2024 End: 02-07-[address] [facility] Start: 02-02-2024 End: 02-02-2024 Refill Colin Tejeda MD Work Phone: [facility] Comment on above: Brain lesion Start: 11-03-2023 End: 11-03-2023 Office outpatient visit 15 minutes Felipe Drake MD Work Phone: [facility] Comment on above: Anaplastic astrocyto ma (CMS-HCC) (Primary Dx); Malignant glioma of cerebrum (CMS-HCC) Start: 11-03-2023 End: 11-03-2023 ambulatory [facility] Comment on above: Anaplastic astrocyto ma (CMS-HCC) (Primary Dx); Malignant glioma of cerebrum (CMS-HCC); Anxiety associated with cancer diagnosis ([facility]-HCC) Start: 10-23-2023 End: 10-23-2023 ambulatory [facility] Start: 10-10-2023 End: 10-10-2023 ambulatory MARTINA HERRERA Not Available Start: 07-07-2023 End: 07-11-2023 Refill Colin Tejeda MD Work Phone: [facility] Comment on above: Brain lesion Start: 07-04-2023 End: 07-04-2023 Orders Only Brooke [facility] Comment on above: Anaplastic astrocyto ma ([facility]-HCC) (Primary Dx) Start: 07-03-2023 End: 07-03-2023 ambulatory [facility] Start: 06-22-2023 End: 06-22-2023 Patient encounter status Angelo Clarence ASSISTANT PARALEGAL-MESH CUTTER Work Phone: [facility] [employer] Work Phone: Start: 06-22-2023 End: 06-22-2023 Periodic preventive med est patient 40-64yrs Angelo Serna ASSISTANT PARALEGAL-MESH CUTTER Work Phone: [facility] Comment on above: Wellness examination (Primary Dx); Anaplastic astrocytoma (CMS-HCC) Start: 04-07-2023 End: 04-07-2023 Office outpatient visit 25 minutes Felipe Drake MD Work Phone: [facility] Comment on above: Anaplastic astrocyto ma (CMS-HCC) (Primary Dx); Malignant glioma of cerebrum (CMS-HCC) Start: 04-07-2023 End: 04-07-2023 ambulatory FELIPE DRAKE [facility] Comment on above: Anaplastic astrocyto ma (CMS-HCC) (Primary Dx) Start: 03-27-2023 End: 03-27-2023 ambulatory FELIPE DRAKE [facility] Start: 08-10-2022 End: 08-10-2022 ambulatory Cassie Winter Other [employer] Other Start: 08-10-2022 Office outpatient vi sit 15 minutes Cassie Maggy [facility] Start: 04-03-2022 End: 04-03-2022 ambulatory Silvina Day Other [employer] Other Start: 04-03-2022 Office outpatient vi sit 15 minutes Silvina Day [facility] Start: 01-19-2022 End: 01-19-[address] GALINA STALEY Facility:[facility] Start: 01-18-2022 Encounter for preprocedural laboratory examination DR GALINA STALEY [facility] Start: 01-15-2022 End: 01-16-[address] GALINA STALEY Facility:[facility] Start: 01-15-2022 End: 01-16-2022 Encounter for preprocedural laboratory examination DR GALINA STALEY Facility:[facility] Start: 01-13-2022 Encounter for other preprocedural examination DR GALINA STALEY [facility] Start: 01-07-2022 End: 01-08-[address] GALINA STALEY Facility:[facility] Start: 01-07-2022 End: 01-08-2022 Encounter for other preprocedural examination DR GALINA STALEY Facility:[facility] Start: 08-04-2021 End: 08-04-[address] ZOHAIB MUSE Facility:[facility] Procedures Date Procedure Procedure Detail Performing Clinician Start: 06-27-2024 MM TOMOSYNTHESIS SCR EENING BI Tonja LOPEZ Work Phone: Start: 06-27-2024 Adult depression scr eening assessment Angelo Serna ASSISTANT PARALEGAL-MESH CUTTER Work Phone: Start: 06-27-2024 Mammography Tonja LOPEZ Work Phone: Start: 11-03-2023 Follow-up visit Follow-up FELIPE DRAKE Start: 09-26-2023 Microscopic observat ion [Identifier] in Cervix by Cyto stain Rebeka Carrera RN Start: 06-22-2023 Adult depression scr eening assessment Angelo Serna ASSISTANT PARALEGAL-MESH CUTTER Work Phone: Start: 10-14-2022 Microscopic observat ion [Identifier] in Cervix by Cyto stain Brooke Duron RN Start: 06-21-2022 Adult depression scr eening assessment Brooke Duron RN Plan of Treatment Date Care Activity Detail Author Start: 09-25-2028 Screening for malign ant neoplasm of cervix [facility] Start: 09-25-2026 Screening for malign ant neoplasm of cervix Pap Smear [facility] Start: 10-14-2025 Screening for malign ant neoplasm of cervix Pap Smear [facility] Start: 10-01-2025 End: 10-01-2025 Patient encounter procedure 10/01/2025 9:00 AM EDT Procedure Visit [facility] [address] [place] [address] Tonja Amrendariz PA [address] [place] [address] [facility] Start: 06-30-2025 End: 06-30-2025 Patient encounter procedure 06/30/2025 4:00 PM EDT Office Visit [facility] [address] [place] [phone] Angelo Serna APRN-CNP [address] [place] [address] [place] [address] [facility] Start: 06-27-2025 Adult BMI Screening Adult BMI Screen ing [facility] Start: 06-27-2025 Depression Screening Depression Scre ening [facility] Start: 06-27-2025 Screening for malign ant neoplasm of breast Mammogram [facility] Start: 06-27-2025 Tobacco Screening Tobacco Screening [facility] Start: 02-10-2025 Tobacco Screening Tobacco Screening [facility] Start: 02-06-2025 Adult BMI Screening Adult BMI Screen ing [facility] Start: 02-06-2025 Tobacco Screening Tobacco Screening [facility] Start: 11-04-2024 Influenza vaccination N [facility] Start: 11-02-2024 Adult BMI Screening Adult BMI Screen ing [facility] Start: 11-01-2024 End: 11-01-2024 Patient encounter procedure 11/01/2024 3:30 PM EDT Office Visit [facility] [place] [address] Felipe Drake MD [address] [facility] [address] [place] [address] [facility] Start: 10-15-2024 End: 10-15-2024 Patient encounter procedure 10/15/2024 9:10 AM EDT Office Visit [facility] [address] [place] [phone] Martina Herrera PA [address] [place] [address] [facility] Start: 10-14-2024 End: 10-14-2024 Patient encounter procedure 10/14/2024 9:00 AM EDT Office Visit [facility] [address] [place] [address] Martina Herrera PA [address] [place] [address] [facility] Start: 09-30-2024 End: 12-01-2025 MG Breast - bilateral Screening Bilateral screening mammogram Imaging Routine Breast cancer screening by mammogram Expected: 09/30/2024 (Approximate), Expires: 12/01/2025 [facility] Work Phone: Comment on above: Expected: 09/30/2024 (Approximate), Expires: 12/01/2025 Start: 09-30-2024 End: 09-30-2024 Patient encounter procedure [facility] Comment on above: Arrived Start: 06-30-2024 Tobacco Screening Tobacco Screening [facility] Start: 06-29-2024 Adult BMI Screening Adult BMI Screen ing [facility] Start: 06-27-2024 End: 06-27-2024 Patient encounter procedure 06/27/2024 3:00 PM EDT Office Visit [facility] [address] [place] [phone] Angelo Serna, ASSISTANT PARALEGAL-MESH CUTTER [address] [place] [phone] [facility] Start: 06-26-2024 Screening for malign ant neoplasm of breast Mammogram [facility] Start: 06-21-2024 Depression Screening Depression Scre ening [facility] Start: 06-21-2024 Tobacco Screening Tobacco Screening [facility] Start: 04-07-2024 Adult BMI Screening Adult BMI Screen ing [facility] Start: 03-25-2024 End: 03-25-2024 Patient encounter procedure 03/25/2024 9:15 AM EST Appointment [facility] - [facility] Imaging [address] [place] [address] Felipe Drake MD [address] [place] [address] [address] [place] [address] [facility] Start: 02-12-2024 End: 11-02-2024 MR Brain WO and W contrast IV MR brain with and without contrast Imaging Routine Anaplastic astrocytoma (CMS-HCC) 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 (CMS-HCC) Expected: 02/12/2024, Expires: 11/02/2024 [facility] Work Phone: Comment on above: Expected: 02/12/2024 , Expires: 11/02/2024 Start: 02-07-2024 End: 02-07-2024 Patient encounter procedure 02/07/2024 11:40 AM EST Office Visit [facility] [address] [place] [phone] Angelo Serna APRN-CNP [address] [place] [phone] [facility] Start: 11-05-2023 COVID-19 Vaccine ( season) COVID-19 Vaccine ( season) [facility] Start: 11-05-2023 Influenza vaccination Influenza Vacc ine [facility] Start: 11-03-2023 End: 11-03-2023 Patient encounter procedure 11/03/2023 3:30 PM EDT Office Visit [facility] [address] [place] [phone] Felipe Drake MD [address] [place] [address] [place], [place] [phone] [facility] Start: 11-03-2023 End: 07-03-2024 MR Brain WO and W contrast IV MR brain with and without contrast Imaging Routine Anaplastic astrocytoma (CMS-HCC) Expected: 11/03/2023 (Approximate), Expires: 07/03/2024 [facility] Work Phone: Comment on above: Expected: 11/03/2023 (Approximate), Expires: 07/03/2024 Start: 07-06-2023 End: 04-07-2024 MR Brain WO and W contrast IV MR brain with and without contrast Imaging Routine Anaplastic astrocytoma ([facility]-HCC) Expected: 07/06/2023 (Approximate), Expires: 04/07/2024 [facility] Work Phone: Comment on above: Expected: 07/06/2023 (Approximate), Expires: 04/07/2024 Start: 07-03-2023 End: 07-03-2023 Patient encounter procedure 07/03/2023 12:45 PM EDT Appointment [facility] - [facility] Imaging [address] [place] [address] Felipe Drake MD [facility] [address] [place] [address] [facility] Start: 06-22-2023 End: 06-22-2023 Patient encounter procedure 06/22/2023 3:15 PM EDT Office Visit [facility] [address] [place] [phone] Angelo Serna APRN-MESH CUTTER [address] [place] [address], [place] [address] [facility] Start: 06-22-2023 Depression Screening Depression Scre ening [facility] Start: 06-22-2023 Tobacco Screening Tobacco Screening [facility] Start: 11-04-2022 COVID-19 Vaccine ( season) COVID-19 Vaccine ( season) [facility] Start: 06-22-2002 DTaP,Tdap and Td Vaccines (1 - Tdap) DTaP,Tdap and Td Vaccines ( - Tdap) [facility] Start: 06-22-2001 Adult BMI Follow Up Plan Adult BMI Follow Up Plan [facility] End: 11-02-2024 CBC W Auto Differential panel - Blood CBC with auto diff Lab Routine Anaplastic astrocytoma (CMS-HCC) 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 ([facility]) 1 Occurrences starting 11/03/2023 until 11/02/2024 [facility] Comment on above: 1 Occurrences starti ng 11/03/2023 until 11/02/2024 End: 11-02-2024 Comprehensive metabolic 2000 panel - Serum or Plasma Comprehensive metabolic panel Lab Routine Anaplastic astrocytoma ([facility]) Malignant glioma of cerebrum ([facility]) Anxiety associated with cancer diagnosis ([facility]) 1 Occurrences starting 11/03/2023 until 11/02/2024 [facility] Comment on above: 1 Occurrences starti ng 11/03/2023 until 11/02/2024 THIN PREP TIS PAP AN D HR HPV DNA THIN PREP TIS PAP AND HR HPV DNA Pathology and Cytology Routine Well woman exam with routine gynecological exam Ordered: 09/30/2024 [facility] Comment on above: Ordered: 09/30/2024 Immunizations Immunization Date Immunization Notes Care Provider Ami reece 11-22-2023 influenza virus vaccine, unspecified formulation Angelo Sernas ASSISTANT [employer] Work Phone: [facility] 11-23-2022 influenza virus vaccine, unspecified formulation Angelo Sernas ASSISTANT [employer] CUTTER Work Phone: [facility] 11-24-2021 influenza, injectabl e, quadrivalent, preservative free Brooke Duron RN [facility] Work Phone: 11-25-2020 influenza, injectabl e, quadrivalent, preservative free Brooke Duron RN [facility] 11-27-2019 influenza, injectabl e, quadrivalent, preservative free Brooke Duron RN [facility] 11-28-2018 influenza, injectabl e, quadrivalent, preservative free Brooke Duron RN [facility] 11-29-2017 influenza, injectabl e, quadrivalent, preservative free Brooke Druon RN [facility] 11-30-2016 influenza, injectabl e, quadrivalent, preservative free Brooke Oliverio RN [facility] Payers Date Payer Category Payer Private Health Insurance [employer] [id number] 2020 Managed Care Other (unspecified) [employer] [place] [id number] 2020 Unknown [employer] [facility] [id number] 2020-Present [phone] [address] [address] [place] [address] [id number] 1983 Unknown [id number] 2.16.840.1.864438.3.579.2. 593 1983 Unknown [id number] 2.16.840.1.812207.3.579.2. 593 1983 Unknown [id number] 2.16.840.1.972082.3.579.2. 593 1983 Unknown [id number] 2.16.840.1.689425.3.579.2. 593 1983 Unknown [id number] 2.16.840.1.701518.3.579.2. 1285 1983 Unknown [id number] 2.16.840.1.564646.3.579.2. 1285 1983 Unknown [id number] 2.16.840.1.409657.3.579.2. 1285 1983 Unknown [id number] 2.16.840.1.886796.3.579.2. 1285 1983 Unknown [id number] 2.16.840.1.832898.3.579.2. 1285 1983 Unknown [id number] 2.16.840.1.326807.3.579.2. 1285 1983 Unknown [id number] 2.16.840.1.456488.3.579.2. 1285 1983 Unknown [id number] 2.16.840.1.139738.3.579.2. 1285 1983 Unknown [id number] 2.16.840.1.400177.3.579.2. 1285 1983 Unknown [id number] 2.16.840.1.398610.3.579.2. 1285 1983 Unknown [id number] 2.16.840.1.829911.3.579.2. 1258 1983 Unknown [id number] 2.16.840.1.719111.3.579.2. 9 1959 Unknown [id number] Social History Date Type Detail Facility Unknown if ever smoked [employer] Other Start: 06-12-2021 End: 10-10-2023 Sex Assigned At [facility] [employer] [facility] Start: 12-27-2021 End: 10-07-2022 Tobacco smoking status NHIS Never smoked tobacco [facility] Start: 12-27-2021 End: 10-07-2022 Tobacco use and exposure Smokeless tobacco non-user [facility] Start: 03-04-2024 End: 09-30-2024 Alcoholic beverage intake Current drinker of alcohol (finding) [facility] Start: 06-12-2021 End: 10-10-2023 History of Social function [facility] Do you belong to any clubs or organizations such as worship groups, unions, fraternal or athletic groups, or school groups? Yes [facility] Are you now , , , , never or living with a partner? [facility] How often to you hav e a drink containing alcohol? Monthly or less [facility] How many standard dr inks containing alcohol do you have on a typical day? 1 or 2 [facility] How often do you hav e 6 or more drinks on 1 occasion? Never [facility] How hard is it for y ou to pay for the very basics like food, housing, medical care, and heating Not hard at all [facility] Do you feel stress - tense, restless, nervous, or anxious, or unable to sleep at night because your mind is troubled all the time - these days [OSQ] Only a little [facility] Start: 07-12-2020 Education 18 [facility] Start: 03-14-2022 Alcohol Comment rarely [facility] Start: 1985 Sex assigned at Not on file [facility] Start: 05-28-2020 End: 04-29-2024 Sex Female (finding) [facility] Start: 1985 Sex Assigned At Female [facility] Start: 09-19-2022 Alcohol Comment 1-2 drinks less than monthly in the past year [facility] Start: 09-13-2022 Gender identity Identifies as female gender (finding) [facility] Start: 09-13-2022 Sexual orientation Heterosexual (finding) [facility] Medical Equipment Procedure Code Equipment Code Equipment Origin al Text Equipment Identifier Dates Gft Sft Tis Dram trx+ 2x2 [place] Rpl [id number] + [id number] - [id number] - [id number] Start: 06-01-2020 Cvr Lw Prof Bowman Hole 10mm - [id number] Start: 06-01-2020 Plt Lw Pf Extra Rig 2-Hl 12mm - [id number] Start: 06-01-2020 Scr Cmf Slfdrl Rodriguez alcocer Pin 1.5x4 - [id number] Start: 06-01-2020 Goals Date Patient Goal Desired Activity /State Personal health goal Comment on above: Formatting of this n ote might be different from the original. Evaluation of progress towards goal: home/self care Clinical Notes 01-04-2022 to 09-30-2024 JOHN Richard - 09/30/2024 10:00 AM Asif Serna ASSISTANT [employer]IANA - 06/27/2024 1:20 PM [facility] 03/04/2024 7:40 AM Maria R Serna [facility] - 02/07/2024 11:40 AM EST Note Date & Type Note Facility 09-30-2024 History of Present illness Narrative Reason for Appointment: Patient ID: Freddy Peoples is a 39 y.o. female who presents for [facility] Women Visit Patient presents today for Annual Exam. MEDICATIONS Current Outpatient Medications Medication Instructions levETIRAcetam (Keppra) 500 MG tablet 1 tablet, Oral, 2 times daily Levonorgestrel (KYLEENA IU) Intrauterine Multiple Vitamins-Minerals (MULTIVITAMIN ADULT, MINERALS, PO) Oral, Daily RT ALLERGIES No Known Allergies PROBLEMS Active Ambulatory Problems Diagnosis Date Noted Contracture, left ankle 09/16/2022 History of malignant neoplasm of skin 09/16/2022 Resolved Ambulatory Problems Diagnosis Date Noted No Resolved Ambulatory Problems Past Medical History: Diagnosis Date Brain tumor (HCC) 05/2020 Hernia, inguinal IUD check up 10/31/2022 Lump in the abdomen Never smoked tobacco Nexplanon removal 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 HISTORY PAST MEDICAL HISTORY SOCIAL HISTORY Past Medical History: Diagnosis Date Brain tumor (HCC) 05/2020 (tumor removed; completed radiation; on chemo medication) Hernia, inguinal IUD check up 10/31/2022 mirena Lump in the abdomen Never smoked tobacco Nexplanon removal 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 Social History Tobacco Use Smoking status: Never Smokeless tobacco: Never Vaping Use Vaping status: Never Used Substance Use Topics Alcohol use: Yes Alcohol/week: 1.0 standard drink of alcohol Types: 1 Glasses of wine per week Comment: 1-2 drinks less than monthly in the past year Drug use: Never FAMILY HISTORY Family History Problem Relation Name Age of Onset Hyperlipidemia Father Brennen Macario Hypertension Father Brennen Macario Cancer Paternal Grandfather Jose Melanoma Neg Hx SURGICAL HISTORY Past Surgical History: Procedure Laterality Date BRAIN SURGERY 06/01/2020 SECTION, CLASSIC 08/20/2018 SECTION, LOW TRANSVERSE 07/10/2014 TONSILLECTOMY REVIEW OF SYSTEMS Review of Systems: Review of Systems Constitutional: Negative. HENT: Negative. Eyes: Negative. Respiratory: Negative. Cardiovascular: Negative. Gastrointestinal: Negative. Genitourinary: Negative. Musculoskeletal: Negative. Skin: Negative. Neurological: Negative. All other systems reviewed and are negative. Hematological: Negative. Endocrine: Negative. Allergic/Immunologic: Negative. OBJECTIVE Objective: Physical Exam Constitutional: Appearance: Normal appearance. Genitourinary: Right Adnexa: not tender and no mass present. Left Adnexa: not tender and no mass present. No cervical discharge. Breasts: Breasts are soft. Right: Normal. Left: Normal. HENT: Head: Normocephalic. Nose: Nose normal. Mouth/Throat: Mouth: Mucous membranes are moist. Cardiovascular: Rate and Rhythm: Normal rate. Pulmonary: Effort: Pulmonary effort is normal. Abdominal: General: Bowel sounds are normal. Palpations: Abdomen is soft. Musculoskeletal: General: Normal range of motion. Cervical back: Normal range of motion. Neurological: General: No focal deficit present. Mental Status: She is alert. Skin: General: Skin is warm and dry. Psychiatric: Mood and Affect: Mood normal. Vitals and nursing note reviewed. Exam conducted with a beef trimmer present. Vitals: Estimated body mass index is 26.26 kg/m as calculated from the following: Height as of 09/05/23: 5' 4 . Weight as of this encounter: 153 lb. BP: 114/76 No LMP recorded. Patient has had an implant. ASSESSMENT & PLAN ICD-10-CM 1. Well woman exam with routine gynecological exam Z01.419 THIN PREP TIS PAP AND HR HPV DNA 2. Breast cancer screening by mammogram Z12.31 Bilateral screening mammogram Bilateral screening mammogram Annual Exam: Patient presents today for an annual exam. Patient states she is doing well and has no complaints. Pap was obtained without difficulty. Orders Placed This Encounter Procedures Bilateral screening mammogram Follow Up: Patient is to return in one year for annual unless needed otherwise. Documented by JOHN Richard on behalf of: JOHN Richard documented in this encounter [facility] 06-27-2024 History of Present illness Narrative Subjective Patient ID: Freddy Peoples is a 39 y.o. female. HPI Freddy presents to the office for wellness. She has no concerns today. She reports she has been staying active and participating in [employer] runs. She gets labs completed annually with the [employer], she will provide results. She reports Labs include lipid profile. 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 She gets routine MRI brain every 6 months and FU with Dr. Drake. The most recent brain MRI 03/25/2024- Stable postsurgical changes status post left parietal craniotomy with underlying surgical resection cavity. Next follow up 2024. Dr. Tejeda continues to order her Keppra. Dr. Muse, LAN/WAN ENGINEER- she is up to date on PAP and routine screenings. She has IUD in place. They placed mammogram order. The following portions of the patient's history were reviewed and updated as appropriate: allergies, current medications, past family history, past medical history, past social history, past surgical history, problem list, and medication reconciliation was completed including current medication and post discharge medication. Review of Systems Constitutional: Negative for chills, diaphoresis, fatigue, fever and unexpected weight change. HENT: Negative. Eyes: Negative. Respiratory: Negative for cough, chest tightness, shortness of breath and wheezing. Cardiovascular: Negative for chest pain, palpitations and leg swelling. Gastrointestinal: Negative for abdominal pain, diarrhea, nausea and vomiting. Endocrine: Negative for polydipsia, polyphagia and polyuria. Genitourinary: Negative for difficulty urinating, frequency, hematuria and urgency. Musculoskeletal: Negative for arthralgias, gait problem, joint swelling and neck pain. Skin: Negative. Neurological: Negative for dizziness, syncope, weakness, light-headedness, numbness and headaches. Psychiatric/Behavioral: Negative for self-injury and suicidal ideas. Objective Physical Exam Vitals and nursing note reviewed. Constitutional: General: She is not in acute distress. Appearance: Normal appearance. She is well-developed. She is not ill-appearing. HENT: Head: Normocephalic and atraumatic. Right Ear: Tympanic membrane, ear canal and external ear normal. Left Ear: Tympanic membrane, ear canal and external ear normal. Nose: Nose normal. Mouth/Throat: Mouth: Mucous membranes are moist. Pharynx: Oropharynx is clear. Eyes: Extraocular Movements: Extraocular movements intact. Pupils: Pupils are equal, round, and reactive to light. Neck: Vascular: No carotid bruit. Cardiovascular: Rate and Rhythm: Normal rate and regular rhythm. Pulses: Normal pulses. Heart sounds: Normal heart sounds. No murmur heard. Pulmonary: Effort: Pulmonary effort is normal. No respiratory distress. Breath sounds: Normal breath sounds. No wheezing, rhonchi or rales. Chest: Chest wall: No tenderness. Abdominal: General: Bowel sounds are normal. Palpations: Abdomen is soft. Tenderness: There is no abdominal tenderness. Musculoskeletal: General: Normal range of motion. Cervical back: Normal range of motion and neck supple. No rigidity or tenderness. Right lower leg: No edema. Left lower leg: No edema. Lymphadenopathy: Cervical: No cervical adenopathy. Skin: General: Skin is warm and dry. Capillary Refill: Capillary refill takes less than 2 seconds. Findings: No rash. Neurological: General: No focal deficit present. Mental Status: She is alert and oriented to person, place, and time. Motor: No weakness. Psychiatric: Mood and Affect: Mood normal. Behavior: Behavior normal. Assessment/Plan Health maintenance reviewed. She follows with Dr. Muse, LAN/WAN ENGINEER, for routine care, whom also orders mammogram. She has mammogram scheduled for today. Wellness labs are completed through work. She will provide a copy. She also gets routine labs completed with Oncology. CBC last completed 03/27/2023 and was within normal limits CMP completed 12/06/2022 and was with thin normal limits. She has repeat CMP and CBC ordered for 11/03/2023. BMI elevated indicating overweight, discussed lifestyle modifications. Ensure to follow up with specialists. Up to date on dental and vision exams. Otherwise healthy adult. She may follow up annually for wellness or sooner as needed. Freddy was seen today for annual exam. Diagnoses and all orders for this visit: Wellness examination Overweight (BMI 25.0-29.9) LISA Maldonado 06/27/24 1344 documented in this encounter [facility] [employer] 03-04-2024 History of Present illness Narrative Subjective Patient ID: Freddy Peoples is a 38 y.o. female. HPI Freddy presents to the office for follow up for lump under left armpit. I sent in doxycycline for possible folliculitis on 02/07/2024. I also recommended to avoid shaving. She completed antbiotic and recommendations, and she feels the lump is improving. She reports it feels smaller and it is no longer painful to touch. Denies fever, body aches, fatigue, chills, weight loss. No redness, warmth, or drainage. She had mammogram 06/27/2023 at [facility], There are scattered areas of fibroglandular density. Scattered benign-appearing calcifications are present. Routine screening at 12 months was recommended. She has family hx of breast cancer in maternal aut, age 62. 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 She had treatment, Concurrent chemoradiation with Temodar 07/2020-Adjuvant Temodar treatment from October 2020-09/2021, and craniectomy by Dr. Tejeda. She follows with oncology, Dr. Drake closely. The most recent brain MRI 10/24/23 showed overall stable findings, no significant change compared to June and March scan this year. The following portions of the patient's history were reviewed and updated as appropriate: allergies, current medications, past family history, past medical history, past social history, past surgical history, problem list, and medication reconciliation was completed including current medication and post discharge medication. Review of Systems Constitutional: Negative for chills, diaphoresis, fatigue, fever and unexpected weight change. Skin: Lump under left armpit. Objective Physical Exam Vitals and nursing note reviewed. Constitutional: Appearance: Normal appearance. HENT: Head: Normocephalic and atraumatic. Pulmonary: Effort: Pulmonary effort is normal. Skin: General: Skin is warm and dry. Findings: No erythema or rash. Comments: Small lump palpated to left axilla. No redness, warmth, or drainage. Non tender with palpation. I no longer palpate substance underneath the skin. It is smaller in size and possible scar tissue. Neurological: Mental Status: She is alert. Assessment/Plan Symptoms improved she will continue to monitor. Discussed exfoliating. She will let me know if symptoms persist or worsen. Discussed possible need to order ultrasound. She has wellness scheduled in June and will have mammogram completed, order typically from women[facility] health, she will ensure to complete and have results faxed to us. Freddy was seen today for follow - up abscess. Diagnoses and all orders for this visit: Lump in armpit, left LISA Maldonado 03/04/24 0837 documented in this encounter [facility] 02-07-2024 History of Present illness Narrative Subjective Patient ID: Freddy Peoples is a 38 y.o. female. HPI Freddy presents to the office as she is concerned about lump under left armpit. She reports symptoms began a few weeks ago. Denies fever, body aches, fatigue, chills. No redness, warmth, drainage. She had mammogram 06/27/2023 at [facility], There are scattered areas of fibroglandular density. Scattered benign-appearing calcifications are present. Routine screening at 12 months was recommended. She has family hx of breast cancer in maternal aut, age 62. 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 She had treatment, Concurrent chemoradiation with Temodar 07/2020- Adjuvant Temodar treatment from October 2020-09/2021, and craniectomy by Dr. Tejeda. She follows with oncology, Dr. Drake closely. The most recent brain MRI 10/24/23 showed overall stable findings, no significant change compared to June and March scan this year. Repeat another brain MRI in 02/23/24. The following portions of the patient's history were reviewed and updated as appropriate: allergies, current medications, past family history, past medical history, past social history, past surgical history, problem list, and medication reconciliation was completed including current medication and post discharge medication. Review of Systems Constitutional: Negative for chills, diaphoresis, fatigue, fever and unexpected weight change. Skin: Lump under left armpit. Objective Physical Exam Vitals and nursing note reviewed. Constitutional: Appearance: Normal appearance. HENT: Head: Normocephalic and atraumatic. Cardiovascular: Rate and Rhythm: Normal rate and regular rhythm. Pulses: Normal pulses. Heart sounds: Normal heart sounds. Lymphadenopathy: Cervical: No cervical adenopathy. Skin: General: Skin is warm and dry. Findings: No erythema or rash. Comments: Small lump palpated to left axilla. No redness, warmth, or drainage. Non tender with palpation. It does feel that there is substance underneath the skin. Neurological: Mental Status: She is alert. Assessment/Plan This appears to be folliculitis. Possibly related to shaving. Doxycycline sent. Avoid shaving for the next 2 weeks if possible. Consider ultrasound if symptoms do not improve with antibiotic. Recent mammogram reviewed. She will call the office if symptoms do not improve or worsen. Freddy was seen today for bump in armpit. Diagnoses and all orders for this visit: Folliculitis Other orders - doxycycline (VIBRA-TABS) 100 mg tablet; Take 1 tablet (100 mg total) by mouth in the morning and 1 tablet (100 mg total) before bedtime. Do all this for 10 days. LISA Maldonado 02/11/24 1421 documented in this encounter [facility] 11-03-2023 History of Present illness Narrative The patient is here for follow up of previous glioof cerebrum Dr Drake recommends continued observation MRI brain W/WO in 02/2024. F/u in EARLY 10/2024, pt will message me again before appt for another MRI order. CBC, CMP PRIOR to 10/2024. Orders and Calendar given documented in this encounter [facility] 11-03-2023 History of Present illness Narrative Images from the original note were not included. Felipe Drake MD [facility] [address] [place] [phone] 11/03/23 Freddy Peoples is a 38 y.o. year old female who is a new patient seen today in the Hematology and Medical Oncology clinic. Chief Complaint Patient presents with Follow-up History of Present Illness: Mrs. Peoples is a 38 y.o. female with no significant past medical history presented to ED with complaint of dizziness and speech difficulty. As per patient, she developed dizziness followed by expressive aphasia. Patient's noticed that she was very lethargic and drowsy but didn't witness any seizure like activity. She had a similar episode 2 weeks ago when she noticed visual changes along with dizziness, but that episode resolved on its own after couple of minutes.At [facility], CT head showed hypodense lesion in the left parietal lobe with surrounding edema concerning for either an abscess or metastatic lesion. The patient underwent craniectomy by Dr. 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 Next generation sequencing identified an IDH1 p.[id number] mutation. In the context of the tumor morphology and mmunohistochemical staining profile (loss of ATRX expression and overexpression of p53) the findings support the diagnosis of an IDH-mutant astrocytoma. The tumor shows increased mitotic activity (up to 3 mitoses per 10 high-power field), supporting an anaplastic designation. Concurrent chemoradiation with Temodar 07/2020- Adjuvant Temodar treatment from October 2020-09/2021 Interval history: The patient recently traveled to [place] and had a good time there. Gait is steady going downstairs, no breakthrough seizures. She still has some visual disturbance, occasionally she can see things little bit better in her visual field. She sees physician chief of pathology routinely. She usually has a vertical during seasonal change. Denies any neurological symptoms over the past 6 months. No significant headaches. Oncology History Malignant glioma of cerebrum (CMS-HCC) 06/01/2020 - Cancer Staged Staging form: Brain and Spinal Cord, AJCC 8th Edition - Pathologic stage from 06/01/2020: No stage assigned - Signed by Derek Eduardo DO on 06/11/2020 06/01/2020 - Cancer Staged Staging form: Brain and Spinal Cord, AJCC 8th Edition - Pathologic stage from 06/01/2020: WHO Grade III - Signed by Derek Eduardo DO on 2020 06/11/2020 Initial Diagnosis Malignant glioma of cerebrum (CMS-HCC) Past Medical History: Diagnosis Date Cancer (CMS-HCC) Dizziness Herpes zoster PONV (postoperative nausea and vomiting) Past Surgical History: Procedure Laterality Date ADENOIDECTOMY 1989 AWAKE SYNAPTIVE CRANIOTOMY EXCISION TUMOR PARIETAL Left 06/01/2020 Performed by Colin Tejeda MD at [facility] BRAIN SURGERY 2020 SECTION HERNIA REPAIR 01/19/2022 Right Inguinal Hernia Repair at [facility] MYRINGOTOMY W/ TUBES TONSILLECTOMY AND ADENOIDECTOMY WISDOM TOOTH EXTRACTION Family History Problem Relation Age of Onset Hypertension Father Stroke Maternal Grandfather Colon cancer Paternal Grandfather Diabetes Paternal Grandfather Prostate cancer Paternal Grandfather Breast cancer Maternal Aunt 60 Social History Socioeconomic History Marital status: Highest education level: Master's degree (e.g., MA, MS, Jed, MEd, CINEMA OPERATOR, SUSANNA) Tobacco Use Smoking status: Never Smokeless tobacco: Never Vaping Use Vaping status: Never Used Substance and Sexual Activity Alcohol use: Yes Comment: rarely Drug use: Never Sexual activity: Yes Partners: Male Social Determinants of Health Financial Resource Strain: Low Risk (06/19/2022) Overall Financial Resource Strain (CARDIA) Difficulty of Paying Living Expenses: Not hard at all Food Insecurity: No Food Insecurity (06/22/2023) Hunger Screening Food Insecurity - Worry: Never True Food Insecurity - Inability: Never True Transportation Needs: No Transportation Needs (06/19/2022) PRAPARE - Transportation Lack of Transportation (Medical): No Lack of Transportation (Non-Medical): No Physical Activity: Insufficiently Active (06/12/2021) Exercise Vital Sign Days of Exercise per Week: 3 days Minutes of Exercise per Session: 30 min Stress: No Stress Concern Present (06/12/2021) [place] of Occupational Health - Occupational Stress Questionnaire Feeling of Stress : Only a little Social Connections: Socially Integrated (06/12/2021) Social Connection and Isolation Panel [NHANES] Frequency of Communication with Friends and Family: More than three times a week Frequency of Social Gatherings with Friends and Family: Once a week Attends Anabaptism Services: More than 4 times per year Active Member of Clubs or Organizations: Yes Attends Club or Organization Meetings: 1 to 4 times per year Marital Status: Interpersonal Safety: Not At Risk (06/12/2021) Humiliation, Afraid, Rape, and Kick questionnaire Fear of Current or Ex-Partner: No Emotionally Abused: No Physically Abused: No Sexually Abused: No Housing Instability: Low Risk (06/19/2022) Housing Instability Housing Instability: No No Known Allergies Current Outpatient Medications: ibuprofen (ADVIL,MOTRIN) 200 mg tablet, Take 4 tablets (800 mg total) by mouth daily as needed. 2 tablets in the morning and 2 tablets at night, Disp: , Rfl: levETIRAcetam (KEPPRA) 500 mg tablet, take 1 tablet by mouth twice a day, Disp: 60 tablet, Rfl: 6 multivitamin capsule, Take by mouth daily. 2 gummies daily, Disp: , Rfl: The following portions of the patient's history were reviewed and updated as appropriate: allergies, current medications, past family history, past medical history, past social history, past surgical history and problem list. Review of systems Review of Systems Constitutional: Negative for fatigue. All other systems reviewed and are negative. ECO- Symptomatic; fully ambulatory Physical exam: Vitals: BP 128/61 Pulse 72 Resp 18 Ht 164.5 cm (5' 4.76 ) Wt 68.2 kg (150 lb 6.4 oz) SpO2 99% BMI 25.21 kg/m Body mass index is 25.21 kg/m . Pain Score: 0 General: Well appearing, in no acute distress. Eyes: No icterus, no conjuctival erythema ENT: Pharyngeal mucosa was moist without exudate and inflammation or ulcerations. Tongue was midline and appeared normal Lymph nodes: No palpable adenopathy Neck: Supple. There were no masses, tenderness. Trachea was midline. Respiratory: Respirations were non-labored. Lungs were clear to auscultation. Cardiac: Regular rate and rhythm, S1 and S2 sounds were normal.There were no rubs or gallops. Abdomen: Soft, non-tender, Nondistended. There were no palpable masses. The liver and spleen were not enlarged. Extremities: There was no clubbing, Cyanosis, edema. Skin: There was no obvious rashes, bruising or ecchymosis. Back exam: No palpable tenderness was appreciated. Neurologic: grossly nonfocal Mood and affect: Normal. Results review: EEG Result Date: 05/29/2020 Narrative: DE Routine EEG Report Length of Study: 26 minutes EEG Service Date: 05/29/2020 History: 34 yo woman w/ L parietal lesion Medications: Keppra Technique: This EEG was acquired with electrodes placed according to the 10-20 electrode placement system. A single EKG channel was recorded for cardiac rhythm monitoring. The quality of recording was good. EEG Classification: Normal State of Consciousness: Awake and asleep EEG Findings: 1.) Dominant Rhythm: A PDR of up to 10 Hz was seen 2.) Background: There were multiple waveforms seen throughout the recording. In awake states, there was a normal PDR appreciated as described above. Reactivity to external stimuli was appreciated. Stage I, II, and III sleep were appreciated. Normal sleep architecture was appreciated including K complexes, vertex waves, and sleep spindles. 3.) Hyperventilation and Photic Stimulation were not performed. 4.) HR 72-88 BPM, regular Impression: This is a normal awake and sleep EEG. No epileptiform discharges or lateralizing signs were seen. Awake, PDR 10 Hz Sleep Katya Manzano MD [employer] [place] [facility] 24 Hour EEG Video Monitoring Result Date: 05/30/2020 Narrative: EEG REPORT (Long-Term Video EEG Monitoring) EEG Service Date: 05/29/2020 to 05/30/2020 HISTORY: Freddy Peoples is a 34 y.o. unknown hand preference female with expressive aphasia. The study is to assist clinical diagnosis and management. CURRENT MEDICATIONS: Glucagon, heparin, levetiracetam TECHNICAL DESCRIPTION: This is a continuous monitoring utilizing digital EEG, video and audio as an inpatient for seizure diagnosis. EEG electrodes were placed according to the international 10/20 montage system. Digital EEG data was collected from 25 channels. Multi-reformatted montages were used during the EEG analysis. Quantitative digital analysis, including spectral analysis, was applied for significant findings. Video and audio data was correlated with EEG findings. One additional channel was used to monitor EKG during the EEG study. EEG INTERPRETATION: This is continuous monitoring utilizing digital EEG, audio, and video as an inpatient. Duration and Quality: - Duration: 16 hours and 53 minutes (12:19:36 on 05/29/2020 - 06:12:00 on 05/30/2020) - Quality: Fair quality for digital EEG, audio, and video - Artifacts: Moderate and well recognized Status of Patient: - Awake, Drowsy and Sleep Background: - Anterior: Rhythmic activity with a frequency of 18-20 Hz and amplitude 7-10 V was seen in the bilateral anterior regions. - Posterior: Well-defined, sustained, and symmetrical posterior dominant rhythm with a frequency of 10-11 Hz and amplitude of 25-30 V in the bilateral occipital regions. This activity demonstrated waxing and waning in response to eye closing and opening. Sleep: - The patient spent 30-40% of the recording time in sleep and reached stage II, which was evidenced by the presence of well-developed and symmetric sleep spindles and K-complexes. Significant Findings: - Sustained regional slowing: Intermittent rhythmic left temporoparietal maximum T7 > F7; frequency 2-4 Hz; amplitude 40-60 V; seen as 3-5 second segments; occupied 40-50 % record - Asymmetry: Decreased left temporoparietal intermittent - Generalized slowing: Not identified - Epileptiform discharge(s): Not identified; infrequent negative sharp transients regional left temporoparietal maximum T7>F7 (100-120 ms for the duration and 60-80 V for the amplitude of their negative sharp components) - Electrographic seizure(s): Not identified Events: - Clinical: Not identified - EEG: Not identified EEG CLIASSIFICATION: Abnormal (Awake, Drowsy and Sleep) - Regional slowing intermittent left temporoparietal - Asymmetry decreased regional left temporoparietal intermittent CLINICAL CORRELATION: This study is abnormal. It shows evidences to indicate possible cortical structure lesion in the left temporoparietal region. Appropriate brain imaging study may assist with diagnosis. Clinical correlation is recommended. Adelita Jones MD, PhD Neurology and Clinical Neurophysiology CT abdomen and pelvis with contrast Result Date: 05/29/2020 Narrative: Indication: Brain lesion 5 for primary neoplasm. TECHNIQUE: Enhanced CT of abdomen and pelvis is performed utilizing 100 mL IV Omnipaque 300 contrast medium. No prior comparison. FINDINGS: Extreme lung bases are clear. The liver shows small low-attenuation focus right hepatic lobe which shows higher attenuation than expected for simple cyst. Lesion measures 12 mm in size. The spleen is not enlarged. Adrenal glands, kidneys, and pancreas are not enlarged. The gallbladder is not dilated. No free intra-abdominal air or fluid is seen. The appendix is normal axial image 58. Uterus and ovaries do not appear enlarged. The abdominal aorta shows normal caliber. No significant retroperitoneal lymphadenopathy appreciated. Bone windows show no worrisome lesion. IMPRESSION: 1. Low-attenuation lesion central right liver measuring 12 mm. This shows attenuation value higher than that of simple cyst therefore ultrasound would likely not be specific. Further evaluation by MRI with Eovist contrast medium would be most appropriate. Metastasis is not entirely excluded. 2. Otherwise unremarkable CT abdomen pelvis. All CT scans at this facility use dose modulation, iterative reconstruction, and/or weight based dosing when appropriate to reduce radiation dose to as low as reasonably achievable. Finalized by Zoe Portilol MD on 05/29/2020 8:[address] chest with contrast Result Date: 05/29/2020 Narrative: PROCEDURE: CT CHEST WITH CONTRAST CLINICAL INDICATION: Brain lesion, assess for intrathoracic neoplasm. COMPARISON: None TECHNIQUE: CT was performed of the chest using 100 mL Omnipaque 300 intravenous contrast, without complication. Coronal & sagittal MPR images were generated and reviewed. FINDINGS: Lower Neck & Thyroid: Unremarkable. Lungs: Small 2 mm nodule within the posterior aspect of the right upper lobe (4/233). Central Airway: Unremarkable. Pleura: No pleural effusion, thickening or pneumothorax. Thoracic Aorta & Great Vessels: Normal in diameter. No atherosclerotic calcification. Pulmonary Arteries: Unremarkable. Heart & Pericardium: No detectable coronary arterial calcification. Unremarkable cardiac morphology and pericardium. Lymph Nodes: No enlarged thoracic lymph nodes. Mediastinum & Esophagus: Residual thymus seen. Thoracic Spine & Chest Wall: No suspicious osseous lesion. Other Lines/Tubes/Devices/Hardware: None. Visualized Upper Abdomen: Findings dictated separately.. IMPRESSION: 1. Indeterminate 2 mm right upper lobe lung nodule. Recommend follow-up according to patient's primary neoplasm. 2. Abdominal/pelvic findings dictated separately. All CT scans at this facility use dose modulation, iterative reconstruction, and/or weight based dosing when appropriate to reduce radiation dose to as low as reasonably achievable. Finalized by Will Sorto MD on 05/29/2020 8:24 AM MR brain with and without contrast Result Date: 06/02/2020 Narrative: STUDY: MRI brain with without contrast 06/02/2020. CLINICAL HISTORY: Brain mass, postop, visual field defect COMPARISON: 05/28/2020 TECHNIQUE: Routine multiplanar multisequence MR imaging of the brain was performed prior to and following the uneventful administration of 14 cc ProHance intravenous gadolinium contrast. FINDINGS: Postoperative changes with resection of the left parietal mass with heterogeneous T1 and T2 signal within the resection cavity likely related to postoperative change. There is peripheral hemosiderin ring compatible with surgical resection. Adjacent to the resection cavity in the deep left parietal-occipital white matter extending towards left a subtle trigone there is region of restricted diffusion without corresponding susceptibility concerning for small pericavitary infarct. There is no abnormal enhancement currently appreciated. There is persistent vasogenic edema surrounding the resection cavity. This postoperative changes in the left extra-axial CSF space and left parietal calvarium. IMPRESSION: 1. Postoperative changes with interval resection of the left parietal mass as above with a small region of restricted diffusion extending from the resection cavity towards the left a subtle trigone concerning for small pericavitary infarct. Finalized by Galina Hicks MD on 06/02/2020 5:56 PM MRCP with MRI abdomen with and without contrast Result Date: 05/31/2020 Narrative: CLINICAL INFORMATION: 34-year-old female with hepatic lesion, abnormal CT, brain neoplasm COMPARISON: CT abdomen and pelvis on 05/29/2020 TECHNIQUE: Routine multiplanar multisequence MR imaging of the abdomen was performed prior to and following uneventful administration of 7 cc Eovist intravenous gadolinium contrast. M.R.C.P. was performed with 3-D volume rendered reformatted and maximum intensity projection rotational images for the evaluation of the pancreatic and biliary ductal system at the MR console under concurrent physician supervision. FINDINGS: Right hepatic lesion measuring 1.1 x 0.9 x 1.0 cm is hyperintense on T2-weighted images, hypointense on T1-weighted images and demonstrates no enhancement. No additional hepatic lesions are demonstrated. No biliary ductal dilatation. Patent portal vein. Gallbladder is contracted, compromising additional evaluation. Pancreas demonstrates no inflammatory change or enhancing mass. No pancreatic ductal dilatation. No peripancreatic cyst. Normal spleen with no discrete lesion. Symmetric renal enhancement. No renal mass. No hydronephrosis. Normal adrenal glands. No abdominal ascites. No significant lymphadenopathy. Normal caliber aorta. Clear lung bases. 3-D images confirm findings. IMPRESSION: * Simple right hepatic cyst requires no additional evaluation. Finalized by Hardeep Tripp MD on 05/31/2020 8:12 PM MR brain synaptive protocol Result Date: 05/29/2020 Narrative: STUDY: MRI brain with without contrast 05/28/2020. CLINICAL HISTORY: Dizziness and vertigo a patient with vision loss and dizziness, abnormal MRI brain COMPARISON: None. TECHNIQUE: Routine multiplanar multisequence MR imaging of the brain was performed prior to and following the uneventful administration of 14 cc ProHance intravenous gadolinium contrast. FINDINGS: There is fairly extensive vasogenic edema in the left parietal lobe with localized mass effect and edema and cortical sulci effacement. There is some heterogeneous enhancement seen on axial image #48 measuring 2.0 x 1.2 cm with no restricted diffusion. Findings are most suggestive of neoplastic process either primary SALES SUPERVISOR neoplasm or metastatic disease. Absence of restricted diffusion make abscess unlikely. Midline structures. Unremarkable. There is no shift of midline structures. No evidence of extra-axial fluid collection. Dural venous sinuses opacify symmetrically. IMPRESSION: 1. Extensive left parietal vasogenic edema with left parietal enhancing lesion most suggestive of neoplasm as discussed above which could represent primary SALES SUPERVISOR neoplasm or metastatic disease. No additional abnormal enhancement or intracranial lesion identified. The absence of restricted diffusion within the lesion would make abscess considered unlikely. Finalized by Galina Hicks MD on 05/29/2020 12:42 AM Recent labs: No results found for this or any previous visit (from the past 168 hour(s)). 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 Post radiation MRI reviewed, postoperative encephalomalacia with mild peripheral enhancement as described above without evidence of recurrent or metastatic disease and improvement in adjacent white matter edema. Brain MRI August 2021 showed stable post treatment changes without evidence of disease progression. Brain MRI January 2022 showed involving postop changes no evidence of disease progression. No new lesions. Repeat brain MRI 06/2022 showed no significant change overall stable disease. I reviewed the MRI of December 2022 and compared imaging to June 2022 and 2021. Contrast enhancement at the deep margin of the resection cavity has an appearance of small adjacent nodules and lies close to the surface of the left lateral ventricle. These areas of contrast enhancement have not convincingly increased in size since 06/13/2022 but were not definitely present on 08/04/2021. Residual or recurrent disease in this location cannot be excluded. Overall I favor close monitoring. Plan to repeat MRI in 02/2023. Case was discussed with Neurosurgery, MR spectrometry was recommended. MR spectrometry 01/2023 showed: Overall, spectroscopy findings demonstrate posttreatment related changes with suspected area of proliferative process along the medial aspect of the resection cavity. There is an abnormally reduced SYLVIE to creatine ratio, with an abnormally elevated choline to creatine ratio, in this region. There is a lactate peak present. This relationship is also present on multivoxel spectroscopy, but less conspicuous within the region of the enhancing component along the anterior margin of the resection cavity. Repeat MRI 03/2023 showed overall stable findings compared to January 2023. There is some abnormal surrounding FLAIR signal which is also similar to most recent prior exam, and enlarged from more remote prior exams dated in 2021. The most recent brain MRI 10/24/23 showed overall stable findings, no significant change compared to June and March scan this year. Clinically patient is doing very well. Patient is 3 years out from initial surgery. Continue surveillance per NCCN guideline, repeat another brain MRI in 02/23/24. Follow-up in 10/23/24 with CBC CMP and another brain MRI prior to visit. Sooner if needed. Patient will continue Keppra. Encourage patient to contact me should she develop any new neurological symptoms. Felipe Drake MD Please note that portions of this note were generated using voice recognition M*Modal dictation software. Although every effort was made to ensure the accuracy of this automated logistics vice president, some errors in logistics vice president may have occurred. documented in this encounter [facility] 11-03-2023 Instructions Felipe Drake MD - 11/03/2023 3:30 PM EDT MRI brain W/WO in 02/2024. F/u in EARLY 10/2024, pt will message me again before appt for another MRI order. CBC, CMP PRIOR to 10/2024. documented in this encounter [facility] 07-04-2023 History of Present illness Narrative Images from the original note were not included. View All Conversations on this Encounter Freddy Jessenia Peoples [facility] (supporting Felipe Drake MD)15 hours ago (5:39 PM) Thank you for the quick reply with the results. Yes, having another scan in 4 months sounds like a great plan. Felipe Drake MD Freddy Jessenia Richelle15 hours ago (5:22 PM) Results showed: IMPRESSION: Similar left parietal resection cavity with similar degree of surrounding increased FLAIR signal and area of enhancement along the medial anterior margin, favored to represent posttreatment changes, given similarity of to two most recent prior exams. Perfusion imaging on follow-up MRI would be beneficial. Overall I think the results looks stable. No suspicion for progression. I think we can repeat this imaging in 4 months again before next appointment. If it is okay with you, please let me know so we can go ahead with ordering MRI. Felipe Drake M.D. [facility] [address] [place] [address] documented in this encounter [facility] 06-22-2023 History of Present illness Narrative Subjective Patient ID: Freddy Peoples is a 37 y.o. female. HPI Freddy presents to the office for wellness and to establish care. She gets labs completed annually with the school, she will provide next results at next visit in November. Freddy is an active individual, she runs. However, she has a concern today. Freddy has been on jury duty for the last 2 weeks, and is concerned as she felt a bump in her vaginal area about 3 days ago. This is concerning to her as she has anaplastic astrocytoma. She follows routinely with Dr. Drake. And has routine MRI completed. She gets MRI brain every 6 months and FU with Dr. Drake. She also underwent craniectomy by Dr. Tejeda in 2020. She reports she gets an occasional tension headache, and she feels sensitive to weather changes at the site of her scar. She also has small post surgery side effects, such as with memory, difficulty finding words, and her right sided perioheral vision was effected, but seems to be getting better. She is on Keppra for seizure prevention d/t scar tissue from sx. Otherwise she feels that she is doing well. She admits she is a nervous/anxious person, and has taken xanax PRN in the past, but she feels that she is currently doing well. Denies need for LAN/WAN ENGINEER care, as she is up to date on PAP and routine screenings. She follows with Dr. Muse. She has IUD in place. They placed mammogram order. Last visit with Dr. Drake 02/03/2023- Aplastic astrocytoma, grade 3. Brain MRI August 2021 showed stable post treatment changes without evidence of disease progression. Brain MRI January 2022 showed involving postop changes no evidence of disease progression. No new lesions. Repeat brain MRI 06/2022 showed no significant change overall stable disease. Contrast enhancement at the deep margin of the resection cavity has an appearance of small adjacent nodules and lies close to the surface of the left lateral ventricle. These areas of contrast enhancement have not convincingly increased in size since 06/13/2022 but were not definitely present on 08/04/2021. Residual or recurrent disease in this location cannot be excluded. Overall Dr. Drake favors close monitoring. Plan to repeat MRI in 02/2023. Case was discussed with Neurosurgery, MR spectrometry was recommended. MR spectrometry 01/2023 showed: Overall, spectroscopy findings demonstrate posttreatment related changes with suspected area of proliferative process along the medial aspect of the resection cavity. There is an abnormally reduced SYLVIE to creatine ratio, with an abnormally elevated choline to creatine ratio, in this region. There is a lactate peak present. This relationship is also present on multivoxel spectroscopy, but less conspicuous within the region of the enhancing component along the anterior margin of the resection cavity. Dr. Drake favors observation at this time. Past Surgical History: Procedure Laterality Date ADENOIDECTOMY 1989 AWAKE SYNAPTIVE CRANIOTOMY EXCISION TUMOR PARIETAL Left 06/01/2020 Performed by Colin Tejeda MD at [facility] BRAIN SURGERY 2020 SECTION HERNIA REPAIR 01/19/2022 Right Inguinal Hernia Repair at [facility] MYRINGOTOMY W/ TUBES TONSILLECTOMY AND ADENOIDECTOMY WISDOM TOOTH EXTRACTION Family History Problem Relation Age of Onset Hypertension Father Stroke Maternal Grandfather Cancer Paternal Grandfather Colon cancer Paternal Grandfather Diabetes Paternal Grandfather Immunization History Administered Date(s) Administered COVID-19, mRNA, LNP-S, PF, 100mcg/0.5mL Dose 04/29/2020, 06/12/2020, 01/18/2021 Influenza, Injectable, quadrivalent (PF) 11/30/2016, 11/29/2017, 11/28/2018, 11/27/2019, 11/25/2020, 11/24/2021 The following portions of the patient's history were reviewed and updated as appropriate: allergies, current medications, past family history, past medical history, past social history, past surgical history, and problem list. Review of Systems Constitutional: Negative for chills and fever. HENT: Negative for ear pain and sore throat. Eyes: Negative for pain and visual disturbance. Respiratory: Negative for cough and shortness of breath. Cardiovascular: Negative for chest pain and palpitations. Gastrointestinal: Negative for abdominal pain and vomiting. Genitourinary: Positive for vaginal pain. Negative for dysuria and hematuria. She noticed a lump to her left labia. Musculoskeletal: Negative for arthralgias and back pain. Skin: Negative for color change and rash. Neurological: Positive for headaches. Negative for seizures and syncope. All other systems reviewed and are negative. Objective Physical Exam Vitals and nursing note reviewed. Exam conducted with a beef trimmer present (Jada HELTON). Constitutional: General: She is not in acute distress. Appearance: Normal appearance. She is well-developed. She is not ill-appearing. HENT: Head: Normocephalic and atraumatic. Right Ear: Tympanic membrane, ear canal and external ear normal. Left Ear: Tympanic membrane, ear canal and external ear normal. Nose: Nose normal. Mouth/Throat: Mouth: Mucous membranes are moist. Pharynx: Oropharynx is clear. Eyes: Extraocular Movements: Extraocular movements intact. Pupils: Pupils are equal, round, and reactive to light. Neck: Vascular: No carotid bruit. Cardiovascular: Rate and Rhythm: Normal rate and regular rhythm. Pulses: Normal pulses. Heart sounds: Normal heart sounds. No murmur heard. Pulmonary: Effort: Pulmonary effort is normal. No respiratory distress. Breath sounds: Normal breath sounds. No wheezing, rhonchi or rales. Chest: Chest wall: No tenderness. Abdominal: General: Bowel sounds are normal. Palpations: Abdomen is soft. Tenderness: There is no abdominal tenderness. Genitourinary: General: Normal vulva. Rectum: Guaiac result negative. Comments: No lump or abnormality noted. Musculoskeletal: General: Normal range of motion. Cervical back: Normal range of motion and neck supple. No rigidity or tenderness. Right lower leg: No edema. Left lower leg: No edema. Lymphadenopathy: Cervical: No cervical adenopathy. Skin: General: Skin is warm and dry. Capillary Refill: Capillary refill takes less than 2 seconds. Findings: No rash. Neurological: General: No focal deficit present. Mental Status: She is alert and oriented to person, place, and time. Motor: No weakness. Psychiatric: Mood and Affect: Mood normal. Behavior: Behavior normal. Assessment/Plan Health maintenance reviewed. She will provide a copy of her lab results from the school. Ensure to complete mammogram. Keep follow up with specialists. Annual wellness. Or FU PRN Diagnoses and all orders for this visit: Wellness examination Anaplastic astrocytoma ([facility]-H[facility]) LISA Maldonado 07/01/231944 documented in this encounter [facility] 04-07-2023 History of Present illness Narrative Patient is here for follow up with Dr. Drake. Orders received for Brain MRI in 3 months, no visit. Dr. Drake will review her imaging in tumor board. F/u in late 10/2023 again, likely need another imaging. Patient given calendar, verbalized understanding of future appointments. documented in this encounter [facility] 04-07-2023 History of Present illness Narrative Images from the original note were not included. Felipe Drake MD [facility] [address] [place] [id number] 04/07/23 Freddy Peoples is a 37 y.o. year old female who is a new patient seen today in the Hematology and Medical Oncology clinic. Chief Complaint Patient presents with Follow-up History of Present Illness: Mrs. Peoples is a 37 y.o. female with no significant past medical history presented to ED with complaint of dizziness and speech difficulty. As per patient, she developed dizziness followed by expressive aphasia. Patient's noticed that she was very lethargic and drowsy but didn't witness any seizure like activity. She had a similar episode 2 weeks ago when she noticed visual changes along with dizziness, but that episode resolved on its own after couple of minutes.At [facility], CT head showed hypodense lesion in the left parietal lobe with surrounding edema concerning for either an abscess or metastatic lesion. The patient underwent craniectomy by Dr. 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 Next generation sequencing identified an IDH1 [id number].[id number] mutation. In the context of the tumor morphology and mmunohistochemical staining profile (loss of ATRX expression and overexpression of p53) the findings support the diagnosis of an IDH-mutant astrocytoma. The tumor shows increased mitotic activity (up to 3 mitoses per 10 high-power field), supporting an anaplastic designation. Concurrent chemoradiation with Temodar 07/2020- Adjuvant Temodar treatment from October 2020-09/2021 Interval history: The patient is doing well over the past 3 months no significant headaches or vision change. She has been doing word puzzles occasionally, no difficulty. Gait is steady going downstairs, no breakthrough seizures. She still has some visual disturbance, occasionally she can see things little bit better in her visual field. She sees physician chief of pathology routinely. Denies any neurological symptoms over the past 6 months. No significant headaches. Oncology History Malignant glioma of cerebrum (CMS-HCC) 06/01/2020 - Cancer Staged Staging form: Brain and Spinal Cord, AJCC 8th Edition - Pathologic stage from 06/01/2020: No stage assigned - Signed by Derek Eduardo DO on 06/11/2020 06/01/2020 - Cancer Staged Staging form: Brain and Spinal Cord, AJCC 8th Edition - Pathologic stage from 06/01/2020: WHO Grade III - Signed by Derek Eduardo DO on 2020 06/11/2020 Initial Diagnosis Malignant glioma of cerebrum (CMS-HCC) Past Medical History: Diagnosis Date Cancer (CMS-HCC) Dizziness Herpes zoster PONV (postoperative nausea and vomiting) Past Surgical History: Procedure Laterality Date ADENOIDECTOMY 1989 AWAKE SYNAPTIVE CRANIOTOMY EXCISION TUMOR PARIETAL Left 06/01/2020 Performed by Colin Tejeda MD at [facility] BRAIN SURGERY 2020 SECTION HERNIA REPAIR 01/19/2022 Right Inguinal Hernia Repair at [facility] MYRINGOTOMY W/ TUBES TONSILLECTOMY AND ADENOIDECTOMY WISDOM TOOTH EXTRACTION Family History Problem Relation Age of Onset Hypertension Father Stroke Maternal Grandfather Cancer Paternal Grandfather Colon cancer Paternal Grandfather Diabetes Paternal Grandfather Social History Socioeconomic History Marital status: Spouse name: Not on file Number of children: Not on file Years of education: Not on file Highest education level: Master's degree (e.g., MA, MS, Jed, MEd, CINEMA OPERATOR, [employer]) Occupational History Not on file Tobacco Use Smoking status: Never Smokeless tobacco: Never Vaping Use Vaping Use: Never used Substance and Sexual Activity Alcohol use: Yes Comment: rarely Drug use: Never Sexual activity: Yes Partners: Male Other Topics Concern Not on file Social History Narrative Not on file Social Determinants of Health Financial Resource Strain: Low Risk (06/19/2022) Overall Financial Resource Strain (CARDIA) Difficulty of Paying Living Expenses: Not hard at all Food Insecurity: No Food Insecurity (06/21/2022) Hunger Screening Food Insecurity - Worry: Never True Food Insecurity - Inability: Never True Transportation Needs: No Transportation Needs (06/19/2022) PRAPARE - Transportation Lack of Transportation (Medical): No Lack of Transportation (Non-Medical): No Physical Activity: Insufficiently Active (06/12/2021) Exercise Vital Sign Days of Exercise per Week: 3 days Minutes of Exercise per Session: 30 min Stress: No Stress Concern Present (06/12/2021) [place] [employer] Occupational Health - Occupational Stress Questionnaire Feeling of Stress : Only a little Social Connections: Socially Integrated (06/12/2021) Social Connection and Isolation Panel [NHANES] Frequency of Communication with Friends and Family: More than three times a week Frequency of Social Gatherings with Friends and Family: Once a week Attends Anabaptism Services: More than 4 times per year Active Member of Clubs or Organizations: Yes Attends Club or Organization Meetings: 1 to 4 times per year Marital Status: Interpersonal Safety: Not At Risk (06/12/2021) Humiliation, Afraid, Rape, and Kick questionnaire Fear of Current or Ex-Partner: No Emotionally Abused: No Physically Abused: No Sexually Abused: No Housing Instability: Low Risk (06/19/2022) Housing Instability Housing Instability: No No Known Allergies Current Outpatient Medications: ALPRAZolam (XANAX) 0.25 mg tablet, Take 1 tablet (0.25 mg total) by mouth nightly as needed for anxiety., Disp: 20 tablet, Rfl: 0 ibuprofen (ADVIL,MOTRIN) 200 mg tablet, Take 4 tablets (800 mg total) by mouth daily as needed. 2 tablets in the morning and 2 tablets at night, Disp: , Rfl: levETIRAcetam (KEPPRA) 500 mg tablet, TAKE 1 TABLET BY MOUTH TWICE A DAY, Disp: 60 tablet, Rfl: 5 multivitamin capsule, Take by mouth daily. 2 gummies daily, Disp: , Rfl: The following portions of the patient's history were reviewed and updated as appropriate: allergies, current medications, past family history, past medical history, past social history, past surgical history and problem list. Review of systems Review of Systems Constitutional: Negative for fatigue. All other systems reviewed and are negative. ECO- Symptomatic; fully ambulatory Physical exam: Vitals: BP 124/61 Pulse 77 Temp 37.2 C (99 F) (Oral) Resp 18 Ht 164.5 cm (5' 4.76 ) Wt 67.6 kg (149 lb) SpO2 100% BMI 24.98 kg/m Body mass index is 24.98 kg/m . Pain Score: 0 General: Well appearing, in no acute distress. Eyes: No icterus, no conjuctival erythema ENT: Pharyngeal mucosa was moist without exudate and inflammation or ulcerations. Tongue was midline and appeared normal Lymph nodes: No palpable adenopathy Neck: Supple. There were no masses, tenderness. Trachea was midline. Respiratory: Respirations were non-labored. Lungs were clear to auscultation. Cardiac: Regular rate and rhythm, S1 and S2 sounds were normal.There were no rubs or gallops. Abdomen: Soft, non-tender, Nondistended. There were no palpable masses. The liver and spleen were not enlarged. Extremities: There was no clubbing, Cyanosis, edema. Skin: There was no obvious rashes, bruising or ecchymosis. Back exam: No palpable tenderness was appreciated. Neurologic: grossly nonfocal Mood and affect: Normal. Results review: EEG Result Date: 05/29/2020 Narrative: DE Routine EEG Report Length of Study: 26 minutes EEG Service Date: 05/29/2020 History: 34 yo woman w/ L parietal lesion Medications: Keppra Technique: This EEG was acquired with electrodes placed according to the 10-20 electrode placement system. A single EKG channel was recorded for cardiac rhythm monitoring. The quality of recording was good. EEG Classification: Normal State of Consciousness: Awake and asleep EEG Findings: 1.) Dominant Rhythm: A PDR of up to 10 Hz was seen 2.) Background: There were multiple waveforms seen throughout the recording. In awake states, there was a normal PDR appreciated as described above. Reactivity to external stimuli was appreciated. Stage I, II, and III sleep were appreciated. Normal sleep architecture was appreciated including K complexes, vertex waves, and sleep spindles. 3.) Hyperventilation and Photic Stimulation were not performed. 4.) HR 72-88 BPM, regular Impression: This is a normal awake and sleep EEG. No epileptiform discharges or lateralizing signs were seen. Awake, PDR 10 Hz Sleep Katya Manzano MD [employer] [place] [facility] 24 Hour EEG Video Monitoring Result Date: 05/30/2020 Narrative: EEG REPORT (Long-Term Video EEG Monitoring) EEG Service Date: 05/29/2020 to 05/30/2020 HISTORY: Freddy Peoples is a 34 y.o. unknown hand preference female with expressive aphasia. The study is to assist clinical diagnosis and management. CURRENT MEDICATIONS: Glucagon, heparin, levetiracetam TECHNICAL DESCRIPTION: This is a continuous monitoring utilizing digital EEG, video and audio as an inpatient for seizure diagnosis. EEG electrodes were placed according to the international 10/20 montage system. Digital EEG data was collected from 25 channels. Multi-reformatted montages were used during the EEG analysis. Quantitative digital analysis, including spectral analysis, was applied for significant findings. Video and audio data was correlated with EEG findings. One additional channel was used to monitor EKG during the EEG study. EEG INTERPRETATION: This is continuous monitoring utilizing digital EEG, audio, and video as an inpatient. Duration and Quality: - Duration: 16 hours and 53 minutes (12:19:36 on 05/29/2020 - 06:12:00 on 05/30/2020) - Quality: Fair quality for digital EEG, audio, and video - Artifacts: Moderate and well recognized Status of Patient: - Awake, Drowsy and Sleep Background: - Anterior: Rhythmic activity with a frequency of 18-20 Hz and amplitude 7-10 V was seen in the bilateral anterior regions. - Posterior: Well-defined, sustained, and symmetrical posterior dominant rhythm with a frequency of 10-11 Hz and amplitude of 25-30 V in the bilateral occipital regions. This activity demonstrated waxing and waning in response to eye closing and opening. Sleep: - The patient spent 30-40% of the recording time in sleep and reached stage II, which was evidenced by the presence of well-developed and symmetric sleep spindles and K-complexes. Significant Findings: - Sustained regional slowing: Intermittent rhythmic left temporoparietal maximum T7 > F7; frequency 2-4 Hz; amplitude 40-60 V; seen as 3-5 second segments; occupied 40-50 % record - Asymmetry: Decreased left temporoparietal intermittent - Generalized slowing: Not identified - Epileptiform discharge(s): Not identified; infrequent negative sharp transients regional left temporoparietal maximum T7>F7 (100-120 ms for the duration and 60-80 V for the amplitude of their negative sharp components) - Electrographic seizure(s): Not identified Events: - Clinical: Not identified - EEG: Not identified EEG CLIASSIFICATION: Abnormal (Awake, Drowsy and Sleep) - Regional slowing intermittent left temporoparietal - Asymmetry decreased regional left temporoparietal intermittent CLINICAL CORRELATION: This study is abnormal. It shows evidences to indicate possible cortical structure lesion in the left temporoparietal region. Appropriate brain imaging study may assist with diagnosis. Clinical correlation is recommended. Adelita Jones MD, PhD Neurology and Clinical Neurophysiology CT abdomen and pelvis with contrast Result Date: 05/29/2020 Narrative: Indication: Brain lesion 5 for primary neoplasm. TECHNIQUE: Enhanced CT of abdomen and pelvis is performed utilizing 100 mL IV Omnipaque 300 contrast medium. No prior comparison. FINDINGS: Extreme lung bases are clear. The liver shows small low-attenuation focus right hepatic lobe which shows higher attenuation than expected for simple cyst. Lesion measures 12 mm in size. The spleen is not enlarged. Adrenal glands, kidneys, and pancreas are not enlarged. The gallbladder is not dilated. No free intra-abdominal air or fluid is seen. The appendix is normal axial image 58. Uterus and ovaries do not appear enlarged. The abdominal aorta shows normal caliber. No significant retroperitoneal lymphadenopathy appreciated. Bone windows show no worrisome lesion. IMPRESSION: 1. Low-attenuation lesion central right liver measuring 12 mm. This shows attenuation value higher than that of simple cyst therefore ultrasound would likely not be specific. Further evaluation by MRI with Eovist contrast medium would be most appropriate. Metastasis is not entirely excluded. 2. Otherwise unremarkable CT abdomen pelvis. All CT scans at this facility use dose modulation, iterative reconstruction, and/or weight based dosing when appropriate to reduce radiation dose to as low as reasonably achievable. Finalized by Zoe Portillo MD on 05/29/2020 8:[address] chest with contrast Result Date: 05/29/2020 Narrative: PROCEDURE: CT CHEST WITH CONTRAST CLINICAL INDICATION: Brain lesion, assess for intrathoracic neoplasm. COMPARISON: None TECHNIQUE: CT was performed of the chest using 100 mL Omnipaque 300 intravenous contrast, without complication. Coronal & sagittal MPR images were generated and reviewed. FINDINGS: Lower Neck & Thyroid: Unremarkable. Lungs: Small 2 mm nodule within the posterior aspect of the right upper lobe (4/233). Central Airway: Unremarkable. Pleura: No pleural effusion, thickening or pneumothorax. Thoracic Aorta & Great Vessels: Normal in diameter. No atherosclerotic calcification. Pulmonary Arteries: Unremarkable. Heart & Pericardium: No detectable coronary arterial calcification. Unremarkable cardiac morphology and pericardium. Lymph Nodes: No enlarged thoracic lymph nodes. Mediastinum & Esophagus: Residual thymus seen. Thoracic Spine & Chest Wall: No suspicious osseous lesion. Other Lines/Tubes/Devices/Hardware: None. Visualized Upper Abdomen: Findings dictated separately.. IMPRESSION: 1. Indeterminate 2 mm right upper lobe lung nodule. Recommend follow-up according to patient's primary neoplasm. 2. Abdominal/pelvic findings dictated separately. All CT scans at this facility use dose modulation, iterative reconstruction, and/or weight based dosing when appropriate to reduce radiation dose to as low as reasonably achievable. Finalized by Will Sorto MD on 05/29/2020 8:24 AM MR brain with and without contrast Result Date: 06/02/2020 Narrative: STUDY: MRI brain with without contrast 06/02/2020. CLINICAL HISTORY: Brain mass, postop, visual field defect COMPARISON: 05/28/2020 TECHNIQUE: Routine multiplanar multisequence MR imaging of the brain was performed prior to and following the uneventful administration of 14 cc ProHance intravenous gadolinium contrast. FINDINGS: Postoperative changes with resection of the left parietal mass with heterogeneous T1 and T2 signal within the resection cavity likely related to postoperative change. There is peripheral hemosiderin ring compatible with surgical resection. Adjacent to the resection cavity in the deep left parietal-occipital white matter extending towards left a subtle trigone there is region of restricted diffusion without corresponding susceptibility concerning for small pericavitary infarct. There is no abnormal enhancement currently appreciated. There is persistent vasogenic edema surrounding the resection cavity. This postoperative changes in the left extra-axial CSF space and left parietal calvarium. IMPRESSION: 1. Postoperative changes with interval resection of the left parietal mass as above with a small region of restricted diffusion extending from the resection cavity towards the left a subtle trigone concerning for small pericavitary infarct. Finalized by Galina Hicks MD on 06/02/2020 5:56 PM MRCP with MRI abdomen with and without contrast Result Date: 05/31/2020 Narrative: CLINICAL INFORMATION: 34-year-old female with hepatic lesion, abnormal CT, brain neoplasm COMPARISON: CT abdomen and pelvis on 05/29/2020 TECHNIQUE: Routine multiplanar multisequence MR imaging of the abdomen was performed prior to and following uneventful administration of 7 cc Eovist intravenous gadolinium contrast. M.R.C.P. was performed with 3-D volume rendered reformatted and maximum intensity projection rotational images for the evaluation of the pancreatic and biliary ductal system at the MR console under concurrent physician supervision. FINDINGS: Right hepatic lesion measuring 1.1 x 0.9 x 1.0 cm is hyperintense on T2-weighted images, hypointense on T1-weighted images and demonstrates no enhancement. No additional hepatic lesions are demonstrated. No biliary ductal dilatation. Patent portal vein. Gallbladder is contracted, compromising additional evaluation. Pancreas demonstrates no inflammatory change or enhancing mass. No pancreatic ductal dilatation. No peripancreatic cyst. Normal spleen with no discrete lesion. Symmetric renal enhancement. No renal mass. No hydronephrosis. Normal adrenal glands. No abdominal ascites. No significant lymphadenopathy. Normal caliber aorta. Clear lung bases. 3-D images confirm findings. IMPRESSION: * Simple right hepatic cyst requires no additional evaluation. Finalized by Hardeep Tripp MD on 05/31/2020 8:12 PM MR brain synaptive protocol Result Date: 05/29/2020 Narrative: STUDY: MRI brain with without contrast 05/28/2020. CLINICAL HISTORY: Dizziness and vertigo a patient with vision loss and dizziness, abnormal MRI brain COMPARISON: None. TECHNIQUE: Routine multiplanar multisequence MR imaging of the brain was performed prior to and following the uneventful administration of 14 cc ProHance intravenous gadolinium contrast. FINDINGS: There is fairly extensive vasogenic edema in the left parietal lobe with localized mass effect and edema and cortical sulci effacement. There is some heterogeneous enhancement seen on axial image #48 measuring 2.0 x 1.2 cm with no restricted diffusion. Findings are most suggestive of neoplastic process either primary SALES SUPERVISOR neoplasm or metastatic disease. Absence of restricted diffusion make abscess unlikely. Midline structures. Unremarkable. There is no shift of midline structures. No evidence of extra-axial fluid collection. Dural venous sinuses opacify symmetrically. IMPRESSION: 1. Extensive left parietal vasogenic edema with left parietal enhancing lesion most suggestive of neoplasm as discussed above which could represent primary SALES SUPERVISOR neoplasm or metastatic disease. No additional abnormal enhancement or intracranial lesion identified. The absence of restricted diffusion within the lesion would make abscess considered unlikely. Finalized by Galina Hicks MD on 05/29/2020 12:42 AM Recent labs: No results found for this or any previous visit (from the past 168 hour(s)). 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 Post radiation MRI reviewed, postoperative encephalomalacia with mild peripheral enhancement as described above without evidence of recurrent or metastatic disease and improvement in adjacent white matter edema. Brain MRI August 2021 showed stable post treatment changes without evidence of disease progression. Brain MRI January 2022 showed involving postop changes no evidence of disease progression. No new lesions. Repeat brain MRI 06/2022 showed no significant change overall stable disease. I reviewed the MRI of December 2022 and compared imaging to June 2022 and 2021. Contrast enhancement at the deep margin of the resection cavity has an appearance of small adjacent nodules and lies close to the surface of the left lateral ventricle. These areas of contrast enhancement have not convincingly increased in size since 06/13/2022 but were not definitely present on 08/04/2021. Residual or recurrent disease in this location cannot be excluded. Overall I favor close monitoring. Plan to repeat MRI in 02/2023. Case was discussed with Neurosurgery, MR spectrometry was recommended. MR spectrometry 01/2023 showed: Overall, spectroscopy findings demonstrate posttreatment related changes with suspected area of proliferative process along the medial aspect of the resection cavity. There is an abnormally reduced SYLVIE to creatine ratio, with an abnormally elevated choline to creatine ratio, in this region. There is a lactate peak present. This relationship is also present on multivoxel spectroscopy, but less conspicuous within the region of the enhancing component along the anterior margin of the resection cavity. Repeat MRI 03/2023 showed overall stable findings compared to January 2023. There is some abnormal surrounding FLAIR signal which is also similar to most recent prior exam, and enlarged from more remote prior exams dated in 2021. I favor observation at this point. Brain MRI in 3 months, no visit. I will review her imaging in neurology tumor board. F/u in late 10/2023 again, likely need another imaging. Patient will continue Keppra. Encourage patient to contact me should she develop any new neurological symptoms. Felipe Drake MD Please note that portions of this note were generated using voice recognition [employer] dictation software. Although every effort was made to ensure the accuracy of this automated logistics vice president, some errors in logistics vice president may have occurred. documented in this encounter [facility] 04-07-2023 Instructions Felipe Drake MD - 04/07/2023 3:15 PM EST Brain MRI in 3 months, no visit. I will review her imaging in tumor board. F/u in late 10/2023 again, likely need another imaging. documented in this encounter [facility] 08-10-2022 Evaluation note Encounter Date Diagnosis Assessment [...] any perineal lesions or burning on urination [facility] Other 01-29-2023 Evaluation note* Encounter Date Diagnosis Assessment Notes Treatment Notes Treatment Clinical Notes Mar, Right acute otitis media (ICD-10 - H66.91) take medication as directed. Middle ear fluid can be caused from allergies, traveling or viral infections. It may linger. Follow up with PCP if symptoms persist [facility] Other 11-01-2022 History general Narrative - Reported* Type Description Date Medical History Brain tumor Surgical History C section Surgical History tonsillectomy Surgical History hernia repair 01/2022 Surgical History Brain tumor removal 01/2021 [facility] Other 11-01-2022 History general Narrative - Reported* Type Description Date Medical History Brain tumor Medical History Seasonal allergic rhinitis Surgical History C section Surgical History tonsillectomy Surgical History hernia repair 01/2022 Surgical History Brain tumor removal 01/2021 Surgical History PE tubes [facility] Other Evaluation note* Diagnosis Lump in armpit, left- Primary [facility] Diagnosis Wellness examination- Primary Anaplastic astrocytoma (CMS-HCC) Malignant neoplasm of brain, unspecified site [facility] Diagnosis Anaplastic astrocytoma (CMS-HCC)- Primary Malignant neoplasm of brain, unspecified site [facility] Diagnosis [facility] lesion [facility] Diagnosis Anaplastic astrocytoma (CMS-HCC)- Primary Malignant neoplasm of brain, unspecified site 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 Diagnosis Anaplastic astrocytoma (CMS-HCC)- Primary Malignant neoplasm of brain, unspecified site Malignant glioma of cerebrum (CMS-HCC) [facility]* Diagnosis Brain lesion [facility]* Diagnosis Folliculitis- Primary Other specified disease of hair and hair follicles [facility] noteNo assessment information available [facility] Work Phone: Evaluation note* Diagnosis Wellness examination- Primary Overweight (BMI 25.0-29.9) Overweight documented in this encounter [facility]* Diagnosis Well woman exam with routine gynecological exam Routine gynecological examination Breast cancer screening by mammogram documented in this encounter [facility]Not [facility] filedocumented in [facility]ructionsNot on filedocumented in this encounterPro[facility] SystemInstructionsNot on filedocumented in this encounterProMedi[facility] SystemInstructionsNot on filedocumented in this [facility] Summary Purpose Family History No Family History Records Found Relationship Condition Age at Onset Recorded Date/T dereck father Hypertension Unknown Advance Directives No Advanced Directives Records Found Date Activated Date Inactivated Comments 05/28/2020 10:51 PM 06/03/2020 4:31 PM Date Activated Date Inactivated Comments 05/28/2020 10:51 PM 06/03/2020 4:31 PM Latest Code Status on File Code Status Date Activated Date Inactivated Comments Full Code 05/28/2020 10:51 PM 06/03/2020 4:31 PM Latest Code Status on File Code Status Date Activated Date Inactivated Comments Full Code 05/28/2020 10:51 PM 06/03/2020 4:31 PM Advance Directive Response Recorded Date/ Time Advance Directives No April 1:06pm Reason for Referral Specialty Diagnoses / Procedures Referred By Geoffrey ugarte Referred To Contact Radiology Diagnoses Anaplastic astrocytoma ([facility]) Procedures MR brain with and without contrast Felipe Drake MD [address] [place], [place] [id number] Referral ID Status Reason Start Date Expiration Date V isits Requested Visits Authorized [id number] Pending Review 07/04/2023 07/03/2024 1 1 Chief Complaint and Reason for Visit Chief Complaint Admit Date chest congestion April 29, 2024 1:07pm Additional Source Comments INFORMATION SOURCE (unrecogn ized section and content) DATE CREATED AUTHOR 05/25/2019 [facility] DATE CREATED AUTHOR AUTHOR'S ORGANIZ ATION 01/27/2022 [facility] DATE CREATED AUTHOR AUTHOR'S ORGANIZ ATION 03/26/2024 [facility] DATE CREATED AUTHOR AUTHOR'S ORGANIZ ATION 06/28/2024 [facility] DATE CREATED AUTHOR AUTHOR'S ORGANIZ ATION 09/30/2024 [facility] dical Specialists EPIC REASON FOR VISIT (unrecogniz ed section and content) Reason Comments Follow - Up Abscess Reason Comments Med Refill Reason Comments Follow-up Reason Comments Med Change Request Reason Comments Bump in Armpit Left armpit Reason Comments Annual Exam Reason Comments Well Women Visit Care Teams (unrecognized sec tion and content) [employer] Relationship Specialty Start Date End Date Angelo Serna APRN-CNP PCP - General Nurse Practitioner 09/03/22 [employer] Relationship Specialty Start Date End Date Angelo Serna APRN-CNP PCP - General Nurse Practitioner 09/03/22 [employer] Relationship Specialty Start Date End Date Angelo Serna APRNMESH CUTTER PCP - General Nurse Practitioner 09/03/22 [employer] Relationship Specialty Start Date End Date [facility] PCP - General Nurse Practitioner 09/03/22 [employer] Relationship Specialty Start Date End Date Angelo Serna APRNMESH CUTTER PCP - General Nurse Practitioner 09/03/22 [employer] Relationship Specialty Start Date End Date [facility] PCP - General Nurse Practitioner 09/03/22 [employer] Representatives Relationship Specialty Start Date End Date [facility] PCP - General Nurse Practitioner 09/03/22 Team Status: Active Member Role Status Dates Marvin Childs [facility] Primary Care Provider Active Team Status: Inactive Member Role Status Dates Marvin Childs [facility] Primary Care Provider Active Start: April 29, 2024 End: April 29, 2024 Martina Norton APRN Attending Provider Active S tart: April 29, 2024 End: April 29, 2024 [employer] Representatives Relationship Specialty Start Date End Date Martina Herrera PA [address] [facility] [address] [place] [address] PCP - Medical [place] [employer] 03/06/17 03/05/99 Angelo Serna MD [address] [place] [address] PCP - General 04/24/23 [employer] Representatives Relationship Specialty Start Date End Date Martina Herrera PA [address] [place] [address] [place] [address] PCP - Medical [place] [employer] 03/06/17 03/05/99 Angelo Serna MD [address] [place] [address] PCP - General 04/24/23 Goals (unrecognized section and content) Goals may be documented in a n alternate section FOR RECORDS PERTAINING TO PATIENTS WHO ARE [...] BE BASED ON THE PRIMARY CLINICAL RECORDS. [employer] [facility]. provides no warranty or guarantee of the accuracy or completeness of information in this document.
[2024-10-03 19:10] LABS: Age Gdln ACOG Testing Note (.); IGP, Aptima HPV, rfx 16/18,45 Note (.)
== END 2024-09-30 20:15 | disposition home or self-care (01) ==
LOC: LAB 20:14
PROVIDERS: PCP Nurse Practitioner Family; Visit Provider Physician Assistant
DX: Z01.419 Encounter for gynecological examination (general) (routine) without abnormal findings (principal)
CPT/HCPCS: 87624; 88175